=== PATIENT | male | born 1970 | race Caucasian/White ===

== ENCOUNTER 2017-10-21 11:53 | Emergency (ER) | payer BC ==
[2017-10-21 12:20] VITALS: BP 145/91; PULSE 99; RESP 18; TEMP 99.5
[2017-10-21] MEDS ORDERED: DIPH,PERTUS(ACELL)TETVAC-LF 0.5 ML VIAL IM ONE (12:58)
--- NOTE | 2017-10-21 13:01 | ED ---
General Adult HPI - General Chief complaint: Wound/Laceration Stated complaint: LEFT HAND INJURY Time Seen by Provider: 10/21/17 12:41 Source: patient, RN notes reviewed Mode of arrival: ambulatory Limitations: no limitations - History of Present Illness Initial comments: 47-year-old male presents for a cut to the left hand. Patient states that he cut it with a knife. Patient states he does not recall his last tetanus. Patient states this happens just prior to arrival. Patient denies any other injury from the incident. He denies any numbness or tingling to the hand. He denies any other symptoms. He denies any pain or discomfort. He saw the "little bit so he thought that he might need a stitch. Patient states that he has had in the throbbing type pain that is mild.Patient denies any recent fever , chills, shortness of breath, chest pain, back pain, abdominal pain, nausea vomiting, numbness or tingling, dysuria or hematuria, constipation or diarrhea, headaches or visual changes, or any other current symptoms. - Related Data Allergies Allergy/AdvReac Type Severity Reaction Status Date / Time No Known Allergies Allergy Verified 10/21/17 12:20 Review of Systems ROS Statement: Those systems with pertinent positive or pertinent negative responses have been documented in the HPI. ROS Other: All systems not noted in ROS Statement are negative. Past Medical History Past Medical History: Diabetes Mellitus History of Any Multi-Drug Resistant Organisms: None Reported Past Surgical History: No Surgical Hx Reported Past Psychological History: No Psychological Hx Reported Smoking Status: Never smoker Past Alcohol Use History: None Reported Past Drug Use History: None Reported General Exam - General Exam Comments Initial Comments: General: The patient is awake and alert, in no distress, and does not appear acutely ill. Neck: The neck is supple, there is no tenderness. Cardiovascular: There is a regular rate and rhythm. No murmur, rub or gallop is appreciated. Respiratory: Lungs are clear to auscultation, respirations are non-labored, breath sounds are equal. No wheezes, stridor, rales, or rhonchi. Musculoskeletal: Sensation intact with 2+ pulses throughout the left upper x- ray. Full range of motion with 5 out of 5 muscle strength testing throughout the left hand and wrist. Small 1 cm laceration in between the first and second digit. Neurological: CN II-XII intact, There are no obvious motor or sensory deficits. Coordination appears grossly intact. Speech is normal. Skin: Skin is warm and dry and no rashes or lesions are noted. Psychiatric: Normal mood and affect. Limitations: no limitations Course Vital Signs 10/21/17 12:17 Temperature 99.5 F Pulse Rate 99 Respiratory 18 Rate Blood Pressure 145/91 O2 Sat by Pulse 100 Oximetry Procedures - Procedures Initial comment: The skin was anesthetized with 1% lidocaine. The laceration was then cleansed with Betadine and irrigated with normal saline. The wound was inspected, and there was no evidence of injury to deep structures. No foreign body was noted in the wound. A total of 1 skin sutures were placed utilizing 5-0 nylon to a left hand laceration that is 1 cm in length Medical Decision Making - Medical Decision Making 47-year-old male presents for left hand laceration. This time tetanus is updated and x-rays reviewed. At this time patient underwent suture repair. We discussed care follow-up return parameters all questions. Patient states that he understood and he is in agreement this plan. All questions have been answered. He will be discharged. - Radiology Data Radiology results: report reviewed, image reviewed Disposition Clinical Impression: Laceration of left hand Disposition: HOME SELF-CARE Condition: Stable Instructions: Care For Your Stitches (ED) Additional Instructions: Please use medication as discussed. Please follow up with family doctor if symptoms have not improved over the next two days. Please return to the emergency room if your symptoms increase or worsen or for any other concerns. Please return to the emergency room in 8-10 days to have sutures removed. Please leave wound covered for the first 24-48 hours and then leave open to air after that time. Please use clean soap and water to clean the suture area to prevent scabbing over the top of your sutures. Please watch for any signs of infection which may include but not limited to increased pain, swelling, redness , fever or chills. Please return to the emergency room if any signs of infection do occur. Please return to the emergency room for any other concerns or complications. Referrals: Peng Constantino DO [Primary Care Provider] - 1-2 days Time of Disposition: 13:27
--- NOTE | 2017-10-21 13:13 | XR ---
EXAMINATION TYPE: XR hand complete LT DATE OF EXAM: 10/21/2017 CLINICAL HISTORY: Hand pain after injury. TECHNIQUE: Frontal, lateral and oblique images of the left hand are obtained. COMPARISON: None. FINDINGS: There is no acute fracture/dislocation evident in the left hand. The joint spaces in the l eft hand appear within normal limits. The overlying soft tissue appears unremarkable. IMPRESSION: There is no acute fracture or dislocation in the left hand.
== END 2017-10-21 13:30 | disposition home or self-care (01) ==
LOC: EC 11:53
DX: S61.412A Laceration without foreign body of left hand, initial encounter (principal); Z23 Encounter for immunization; W26.0XXA Contact with knife, initial encounter; Y93.89 Activity, other specified
CPT/HCPCS: 12001; 90471; 90715; 99282

== ENCOUNTER 2020-02-09 23:01 | Observation (INO) | payer OTHER ==
[2020-02-09 23:19] LABS: Glucose,Whole Blood 290 mg/dL (75-99)
--- NOTE | 2020-02-09 23:29 | ED ---
Recheck HPI - General Chief Complaint: Recheck/Abnormal Lab/Rx Stated Complaint: DKA Source: patient, EMS Mode of arrival: EMS Limitations: no limitations - History of Present Illness Initial Comments: Alexander is a 49-year-old type I diabetic who controls his diabetes with sliding sc phil insulin. He does not have a insulin pump. He reports he's been diabetic for approximately 9 years. He has not had DKA since his diagnosis. He states that he was driving back home to [place] from [place], he's not certain if he ate something that made him sick but reports that throughout the day today he's been vomiting which prompted him did not take his insulin. Upon return home his roommate noted that he was quite ill and take him to an outside hospital where he was found to be in severe DKA. Patient reports mild epigastric discomfort from vomiting and complains of thirst but has no other complaints. - Related Data Home Medications Medication Instructions Recorded Confirmed Insulin Glargine,Hum.rec.anlog See Protocol SQ AC-TID 02/09/20 02/09/20 [Basaglar Kwikpen U-100] Insulin Glargine,Hum.rec.anlog 15 unit SQ HS 02/09/20 02/09/20 [Lantus Solostar] Allergies Allergy/AdvReac Type Severity Reaction Status Date / Time No Known Allergies Allergy Verified 02/09/20 23:27 Review of Systems ROS Statement: Those systems with pertinent positive or pertinent negative responses have been documented in the HPI. ROS Other: All systems not noted in ROS Statement are negative. Past Medical History Past Medical History: Diabetes Mellitus History of Any Multi-Drug Resistant Organisms: None Reported Past Surgical History: No Surgical Hx Reported Past Psychological History: No Psychological Hx Reported Smoking Status: Never smoker Past Alcohol Use History: None Reported Past Drug Use History: None Reported General Exam - General Exam Comments Initial Comments: Physical Exam GENERAL: Chronically ill-appearing thin gentleman in no acute distress HENT: Normocephalic, Atraumatic. EYES: PERRL, EOMI PULMONARY: Unlabored respirations. No audible rales rhonchi or wheezing was noted. CARDIOVASCULAR: There is a regular rate and rhythm without any murmurs gallops or rubs. ABDOMEN: Soft and nontender with normal bowel sounds. SKIN: Skin is clear with no lesions or rashes and otherwise unremarkable. : Deferred NEUROLOGIC: Patient is alert and oriented x3. Moving all extremities spontaneously MUSCULOSKELETAL: Normal extremities with adequate strength and full range of motion. No lower extremity swelling or edema. No calf tenderness. PSYCHIATRIC: Normal psychiatric evaluation. Limitations: no limitations Course Vital Signs 02/09/20 23:02 Temperature 98.4 F Pulse Rate 114 H Respiratory 18 Rate Blood Pressure 167/117 O2 Sat by Pulse 99 Oximetry Medical Decision Making - Medical Decision Making Patient care was discussed with transferring physician, patient is in acute DKA likely related to failure to take his medications today secondary to gastroenteritis Review of outside labs reveal the patient had Glucose >600, Anion Gap 32, he was started on Insulin and transferred here Repeat labs were obtained upon arrival here - patient remains in DKA with a glucose of 308, anion gap of 23, potassium remains elevated at 5.2-60 continue the insulin at this time we will rebolus Patient will be admitted to the intensive care unit with DKA protocol Patient care was discussed with the lifestyle block farmer Dr. Tran who agrees with plan - Lab Data Result diagrams: 02/09/20 23:17 02/10/20 00:05 Lab Results 02/09/20 02/09/20 02/09/20 Range/Units 23:11 23:17 23:17 WBC 21.7 H (3.8-10.6) k/uL RBC 5.49 (4.30-5.90) m/uL Hgb 17.1 (13.0-17.5) gm/dL Hct 48.1 (39.0-53.0) % MCV 87.7 (80.0-100.0) fL MCH 31.2 (25.0-35.0) pg MCHC 35.6 (31.0-37.0) g/dL RDW 13.2 (11.5-15.5) % Plt Count 268 (150-450) k/uL Neutrophils % 89 % Lymphocytes % 6 % Monocytes % 3 % Eosinophils % 1 % Basophils % 0 % Neutrophils # 19.4 H (1.3-7.7) k/uL Lymphocytes # 1.4 (1.0-4.8) k/uL Monocytes # 0.7 (0-1.0) k/uL Eosinophils # 0.2 (0-0.7) k/uL Basophils # 0.1 (0-0.2) k/uL VBG pH (7.31-7.41) VBG pCO2 (37-51) mmHg VBG HCO3 (24-28) mmol/L Sodium (137-145) mmol/L Potassium (3.5-5.1) mmol/L Chloride (98-107) mmol/L Carbon Dioxide (22-30) mmol/L Anion Gap mmol/L BUN (9-20) mg/dL Creatinine (0.66-1.25) mg/dL Est GFR (CKD-EPI)AfAm (>60 ml/min/1.73 sqM) Est GFR (CKD-EPI)NonAf (>60 ml/min/1.73 sqM) Glucose (74-99) mg/dL POC Glucose (mg/dL) 290 H (75-99) mg/dL POC Glu Handle Bender ID Marielos Randolph Osmolality (280-301) mosm/kg Plasma Lactic Acid Alexis (0.7-2.0) mmol/L Calcium (8.4-10.2) mg/dL Total Bilirubin (0.2-1.3) mg/dL AST (17-59) U/L ALT (4-49) U/L Alkaline Phosphatase (38-126) U/L Total Protein (6.3-8.2) g/dL Albumin (3.5-5.0) g/dL Urine Color Light Yellow Urine Appearance Clear (Clear) Urine pH 5.0 (5.0-8.0) Ur Specific [place] 1.020 (1.001-1.035) Urine Protein Trace H (Negative) Urine Glucose (UA) 4+ H (Negative) Urine Ketones 4+ H (Negative) Urine Blood Trace H (Negative) Urine Nitrite Negative (Negative) Urine Bilirubin Negative (Negative) Urine Urobilinogen <2.0 (<2.0) mg/dL Ur Leukocyte Esterase Negative (Negative) Urine RBC 1 (0-5) /hpf Urine WBC 1 (0-5) /hpf Ur Squamous Epith Cells <1 (0-4) /hpf Urine Mucus Rare H (None) /hpf Acetone, Qual (Negative) 02/09/20 02/10/20 02/10/20 Range/Units 23:38 00:05 00:05 WBC (3.8-10.6) k/uL RBC (4.30-5.90) m/uL Hgb (13.0-17.5) gm/dL Hct (39.0-53.0) % MCV (80.0-100.0) fL MCH (25.0-35.0) pg MCHC (31.0-37.0) g/dL RDW (11.5-15.5) % Plt Count (150-450) k/uL Neutrophils % % Lymphocytes % % Monocytes % % Eosinophils % % Basophils % % Neutrophils # (1.3-7.7) k/uL Lymphocytes # (1.0-4.8) k/uL Monocytes # (0-1.0) k/uL Eosinophils # (0-0.7) k/uL Basophils # (0-0.2) k/uL VBG pH 7.21 L (7.31-7.41) VBG pCO2 21 L (37-51) mmHg VBG HCO3 8 L* (24-28) mmol/L Sodium 137 (137-145) mmol/L Potassium 5.2 H (3.5-5.1) mmol/L Chloride 108 H (98-107) mmol/L Carbon Dioxide 6 L* (22-30) mmol/L Anion Gap 23 mmol/L BUN 16 (9-20) mg/dL Creatinine 0.80 (0.66-1.25) mg/dL Est GFR (CKD-EPI)AfAm >90 (>60 ml/min/1.73 sqM) Est GFR (CKD-EPI)NonAf >90 (>60 ml/min/1.73 sqM) Glucose 307 H (74-99) mg/dL POC Glucose (mg/dL) (75-99) mg/dL POC Glu Handle Bender ID Osmolality 308 H (280-301) mosm/kg Plasma Lactic Acid Alexis 1.6 (0.7-2.0) mmol/L Calcium 9.5 (8.4-10.2) mg/dL Total Bilirubin 1.1 (0.2-1.3) mg/dL AST 20 (17-59) U/L ALT 17 (4-49) U/L Alkaline Phosphatase 126 (38-126) U/L Total Protein 8.0 (6.3-8.2) g/dL Albumin 5.2 H (3.5-5.0) g/dL Urine Color Urine Appearance (Clear) Urine pH (5.0-8.0) Ur Specific [place] (1.001-1.035) Urine Protein (Negative) Urine Glucose (UA) (Negative) Urine Ketones (Negative) Urine Blood (Negative) Urine Nitrite (Negative) Urine Bilirubin (Negative) Urine Urobilinogen (<2.0) mg/dL Ur Leukocyte Esterase (Negative) Urine RBC (0-5) /hpf Urine WBC (0-5) /hpf Ur Squamous Epith Cells (0-4) /hpf Urine Mucus (None) /hpf Acetone, Qual Positive (Negative) 02/10/20 Range/Units 01:06 WBC (3.8-10.6) k/uL RBC (4.30-5.90) m/uL Hgb (13.0-17.5) gm/dL Hct (39.0-53.0) % MCV (80.0-100.0) fL MCH (25.0-35.0) pg MCHC (31.0-37.0) g/dL RDW (11.5-15.5) % Plt Count (150-450) k/uL Neutrophils % % Lymphocytes % % Monocytes % % Eosinophils % % Basophils % % Neutrophils # (1.3-7.7) k/uL Lymphocytes # (1.0-4.8) k/uL Monocytes # (0-1.0) k/uL Eosinophils # (0-0.7) k/uL Basophils # (0-0.2) k/uL VBG pH (7.31-7.41) VBG pCO2 (37-51) mmHg VBG HCO3 (24-28) mmol/L Sodium (137-145) mmol/L Potassium (3.5-5.1) mmol/L Chloride (98-107) mmol/L Carbon Dioxide (22-30) mmol/L Anion Gap mmol/L BUN (9-20) mg/dL Creatinine (0.66-1.25) mg/dL Est GFR (CKD-EPI)AfAm (>60 ml/min/1.73 sqM) Est GFR (CKD-EPI)NonAf (>60 ml/min/1.73 sqM) Glucose (74-99) mg/dL POC Glucose (mg/dL) 306 H (75-99) mg/dL POC Glu Handle Bender ID [place], [place] Osmolality (280-301) mosm/kg Plasma Lactic Acid Alexis (0.7-2.0) mmol/L Calcium (8.4-10.2) mg/dL Total Bilirubin (0.2-1.3) mg/dL AST (17-59) U/L ALT (4-49) U/L Alkaline Phosphatase (38-126) U/L Total Protein (6.3-8.2) g/dL Albumin (3.5-5.0) g/dL Urine Color Urine Appearance (Clear) Urine pH (5.0-8.0) Ur Specific [place] (1.001-1.035) Urine Protein (Negative) Urine Glucose (UA) (Negative) Urine Ketones (Negative) Urine Blood (Negative) Urine Nitrite (Negative) Urine Bilirubin (Negative) Urine Urobilinogen (<2.0) mg/dL Ur Leukocyte Esterase (Negative) Urine RBC (0-5) /hpf Urine WBC (0-5) /hpf Ur Squamous Epith Cells (0-4) /hpf Urine Mucus (None) /hpf Acetone, Qual (Negative) Critical Care Time Critical Care Time: Yes Total Critical Care Time: 30 Critical Care Time: Critical care time was exclusive of separately billable procedures and treating other patients and teaching time. Critical care was necessary to treat or prevent imminent or life-threatening deterioration. Given the critical condition in which the patient arrived, the patient was immediately assessed by myself and the nurse, and cardiac monitoring initiated due to the potential for rapid decompensation of the patient's clinical c ondition. During the course of the patients stay, I spent a considerable amount of time at the bedside performing serial re-evaluations of the patient's hemodynamic and clinical status because of the recognized potential threat to life or limb in this condition. I then had a chance to review not only all of the available current laboratory and radiographic studies obtained today, but I also reviewed old records available to me at the time. Additionally, any ancillary information available including rim fire priming operator records were reviewed. Sequential vital signs were obtained. Disposition Clinical Impression: DKA, type 1 Disposition: ADMITTED IP TO THIS [facility] Condition: Serious Is patient prescribed a controlled substance at d/c from ED?: No Referrals: Rishi Novak MD [Primary Care Provider] - 1-2 days
[2020-02-09] MEDS ORDERED: SODIUM CHLORIDE 0.9% 1,000 ML IV SCH (23:30)
[2020-02-09 23:38] LABS: Appearance,Urine Clear (Clear); Bilirubin,Urine Negative (Negative); Blood,Urine Trace (Negative); Color,Urine Light Yellow; Glucose,Urine (UA) 4+ (Negative); Leukocyte Esterase,Urine Negative (Negative); Mucus,Urine Rare /hpf; Nitrite,Urine Negative (Negative); Protein,Urine Trace (Negative); RBC,Urine 1 /hpf (0-5); Squamous Epithelial Cell,Urine <1 /hpf (0-4); Urobilinogen,Urine <2.0 mg/dL (<2.0); WBC,Urine 1 /hpf (0-5)
[2020-02-09 23:43] LABS: Basophils # (A) 0.1 k/uL (0-0.2); Basophils % (A) 0 %; Eosinophils # (A) 0.2 k/uL (0-0.7); Eosinophils % (A) 1 %; HCT 48.1 % (39.0-53.0); HGB 17.1 gm/dL (13.0-17.5); Lymphocytes # (A) 1.4 k/uL (1.0-4.8); Lymphocytes % (A) 6 %; MCH 31.2 pg (25.0-35.0); MCHC 35.6 g/dL (31.0-37.0); MCV 87.7 fL (80.0-100.0); Mean Platelet Volume 11.5; Monocytes # (A) 0.7 k/uL (0-1.0); Monocytes % (A) 3 %; Neutrophils # (A) 19.4 k/uL (1.3-7.7); Neutrophils % (A) 89 %; RBC 5.49 m/uL (4.30-5.90); RDW 13.2 % (11.5-15.5); WBC 21.7 k/uL (3.8-10.6)
[2020-02-09 23:57] LABS: Ketones,Urine 4+ (Negative)
[2020-02-10 00:18] LABS: VBG PH 7.21 (7.31-7.41)
[2020-02-10 00:30] LABS: ALT 17 U/L (4-49); AST 20 U/L (17-59); African American GFR (CKD) >90 (>60 ml/min/1.73 sqM); Albumin 5.2 g/dL (3.5-5.0); Alkaline Phosphatase 126 U/L (38-126); Anion Gap 23 mmol/L; Blood Urea Nitrogen 16 mg/dL (9-20); Calcium 9.5 mg/dL (8.4-10.2); Chloride 108 mmol/L (98-107); Glucose 307 mg/dL (74-99); Non-African American GFR(CKD) >90 (>60 ml/min/1.73 sqM); Potassium 5.2 mmol/L (3.5-5.1); Sodium 137 mmol/L (137-145); Total Bilirubin 1.1 mg/dL (0.2-1.3)
[2020-02-10 00:38] LABS: Carbon Dioxide 6 mmol/L (22-30)
[2020-02-10 00:38] LABS: Platelet Count 268 k/uL (150-450)
[2020-02-10] MEDS ORDERED: INSULIN REGULAR BOLUS (FROM DRIP BAG) IV PRN (00:57)
[2020-02-10] MEDS ORDERED: INSULIN REGULAR 100 UNIT in SODIUM CHLORIDE 0.9% 100 ML IV SCH ×2 (01:00→01:45)
[2020-02-10 01:08] LABS: Glucose,Whole Blood 306 mg/dL (75-99)
[2020-02-10] MEDS ORDERED: DEXTROSE 5%-0.45% NACL 1,000 ML IV ONE (01:19)
[2020-02-10] MEDS ORDERED: Potassium Replacement Protocol 1 EACH MISC MISCELLANE PRN ×2 (01:34→17:54)
[2020-02-10] MEDS ORDERED: Magnesium Replacement Protocol 1 EACH MISC MISCELLANE PRN (01:34)
[2020-02-10] MEDS ORDERED: NALOXONE 0.4 MG/ML 1 ML VIAL IV PRN (01:37)
[2020-02-10] MEDS ORDERED: SODIUM CHLORIDE 0.9% 1,000 ML IV SCH (01:45)
[2020-02-10 02:15] LABS: Glucose,Whole Blood 379 mg/dL (75-99)
[2020-02-10 03:09] LABS: Glucose,Whole Blood 209 mg/dL (75-99)
[2020-02-10] MEDS ORDERED: ACETAMINOPHEN TAB 325 MG TAB PO PRN (03:12)
[2020-02-10] MEDS: D5-0.45% NACL WITH KCL 20MEQ/L 1,000 ML IV SCH ×3 (03:29→16:39)
[2020-02-10 04:05] LABS: Glucose,Whole Blood 173 mg/dL (75-99)
[2020-02-10 05:03] LABS: African American GFR (CKD) >90 (>60 ml/min/1.73 sqM); Anion Gap 19 mmol/L; Blood Urea Nitrogen 17 mg/dL (9-20); Carbon Dioxide 10 mmol/L (22-30); Chloride 109 mmol/L (98-107); Glucose 146 mg/dL (74-99); Non-African American GFR(CKD) >90 (>60 ml/min/1.73 sqM); Sodium 138 mmol/L (137-145)
[2020-02-10 05:07] LABS: Glucose,Whole Blood 146 mg/dL (75-99)
[2020-02-10 06:03] LABS: Glucose,Whole Blood 154 mg/dL (75-99)
[2020-02-10 06:28] LABS: HCT 46.4 % (39.0-53.0); MCH 30.2 pg (25.0-35.0); MCHC 34.5 g/dL (31.0-37.0); MCV 87.6 fL (80.0-100.0); Platelet Count 255 k/uL (150-450); RBC 5.29 m/uL (4.30-5.90); RDW 13.3 % (11.5-15.5); WBC 19.5 k/uL (3.8-10.6)
[2020-02-10 07:00] LABS: Glucose,Whole Blood 145 mg/dL (75-99)
[2020-02-10 08:22] LABS: Glucose,Whole Blood 123 mg/dL (75-99)
[2020-02-10 09:09] LABS: African American GFR (CKD) >90 (>60 ml/min/1.73 sqM); Anion Gap 11 mmol/L; Blood Urea Nitrogen 17 mg/dL (9-20); Carbon Dioxide 15 mmol/L (22-30); Chloride 108 mmol/L (98-107); Cholesterol 227 mg/dL (<200); Glucose 127 mg/dL (74-99); HDL Cholesterol 60 mg/dL (40-60); LDL Cholesterol,Calculated 145 mg/dL (0-99); Non-African American GFR(CKD) >90 (>60 ml/min/1.73 sqM); Phosphorus 2.3 mg/dL (2.5-4.5); Potassium 4.6 mmol/L (3.5-5.1); Sodium 134 mmol/L (137-145); Triglycerides 109 mg/dL (<150)
[2020-02-10 09:53] LABS: Glucose,Whole Blood 126 mg/dL (75-99)
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
[2020-02-10 12:44] LABS: Glucose,Whole Blood 233 mg/dL (75-99)
[2020-02-10 13:26] LABS: African American GFR (CKD) >90 (>60 ml/min/1.73 sqM); Anion Gap 11 mmol/L; Blood Urea Nitrogen 15 mg/dL (9-20); Carbon Dioxide 17 mmol/L (22-30); Chloride 104 mmol/L (98-107); Glucose 205 mg/dL (74-99); Non-African American GFR(CKD) >90 (>60 ml/min/1.73 sqM); Phosphorus 2.3 mg/dL (2.5-4.5); Potassium 3.8 mmol/L (3.5-5.1); Sodium 132 mmol/L (137-145)
[2020-02-10 14:06] LABS: Glucose,Whole Blood 267 mg/dL (75-99)
[2020-02-10 14:53] LABS: Glucose,Whole Blood 246 mg/dL (75-99)
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
[2020-02-10 16:12] LABS: Glucose,Whole Blood 213 mg/dL (75-99)
[2020-02-10 17:49] LABS: African American GFR (CKD) >90 (>60 ml/min/1.73 sqM); Anion Gap 7 mmol/L; Blood Urea Nitrogen 13 mg/dL (9-20); Calcium 8.9 mg/dL (8.4-10.2); Carbon Dioxide 20 mmol/L (22-30); Chloride 106 mmol/L (98-107); Glucose 169 mg/dL (74-99); Non-African American GFR(CKD) >90 (>60 ml/min/1.73 sqM); Phosphorus 1.8 mg/dL (2.5-4.5); Potassium 3.6 mmol/L (3.5-5.1); Sodium 133 mmol/L (137-145)
[2020-02-10 18:00] LABS: Glucose,Whole Blood 181 mg/dL (75-99)
[2020-02-10 18:28] LABS: Hemoglobin A1C 11.3 % (4.0-6.0)
[2020-02-10] MEDS ORDERED: POTASSIUM CHLORIDE ER 20 MEQ TAB.ER PO SCH (19:00)
[2020-02-10] MEDS ORDERED: D5-0.45% NACL WITH KCL 20MEQ/L 1,000 ML IV SCH (19:00)
[2020-02-10 20:04] LABS: Glucose,Whole Blood 270 mg/dL (75-99)
[2020-02-10] MEDS ORDERED: ATORVASTATIN 10 MG TAB PO SCH (21:00)
[2020-02-10] MEDS ORDERED: INSULIN DETEMIR (LEVEMIR) 100 UNIT/ML SYR SQ SCH (21:00)
[2020-02-10 21:16] LABS: Glucose,Whole Blood 260 mg/dL (75-99)
[2020-02-10] MEDS: HEPARIN SODIUM,PORCINE 5,000 UNIT/ML 1 ML VIAL SQ SCH (21:18)
[2020-02-10] MEDS: INSULIN ASPART (NovoLOG) 100 UNIT/ML VIAL SQ SCH (21:19)
[2020-02-11 01:40] LABS: Glucose,Whole Blood 99 mg/dL (75-99)
[2020-02-11 06:42] LABS: HCT 49.5 % (39.0-53.0); HGB 17.3 gm/dL (13.0-17.5); MCV 88.5 fL (80.0-100.0); Mean Platelet Volume 9.7; Platelet Count 201 k/uL (150-450); RBC 5.59 m/uL (4.30-5.90); RDW 13.2 % (11.5-15.5); WBC 10.5 k/uL (3.8-10.6)
[2020-02-11 06:49] LABS: ALT 16 U/L (4-49); AST 30 U/L (17-59); African American GFR (CKD) >90 (>60 ml/min/1.73 sqM); Albumin 4.4 g/dL (3.5-5.0); Alkaline Phosphatase 86 U/L (38-126); Anion Gap 9 mmol/L; Blood Urea Nitrogen 12 mg/dL (9-20); Calcium 9.2 mg/dL (8.4-10.2); Carbon Dioxide 20 mmol/L (22-30); Chloride 109 mmol/L (98-107); Non-African American GFR(CKD) >90 (>60 ml/min/1.73 sqM); Potassium 3.8 mmol/L (3.5-5.1); Sodium 138 mmol/L (137-145); Total Bilirubin 0.8 mg/dL (0.2-1.3)
[2020-02-11 07:02] LABS: Glucose,Whole Blood 52 mg/dL (75-99)
[2020-02-11 07:02] LABS: Glucose,Whole Blood 51 mg/dL (75-99)
[2020-02-11 07:03] LABS: Glucose 47 mg/dL (74-99)
[2020-02-11 07:13] VITALS: RESP 21
[2020-02-11 07:24] LABS: Glucose,Whole Blood 128 mg/dL (75-99)
[2020-02-11] MEDS ORDERED: PANTOPRAZOLE 40 MG TABLET PO SCH (07:30)
[2020-02-11] MEDS: INSULIN ASPART (NovoLOG) 100 UNIT/ML VIAL SQ SCH ×2 (08:53→11:58)
[2020-02-11] MEDS: HEPARIN SODIUM,PORCINE 5,000 UNIT/ML 1 ML VIAL SQ SCH (08:58)
[2020-02-11 09:59] VITALS: BMI 17.6
[2020-02-11 10:09] VITALS: BP 152/84; PULSE 98; TEMP 97.7
[2020-02-11 11:51] LABS: Glucose,Whole Blood 295 mg/dL (75-99)
--- NOTE | 2020-02-11 13:01 | P.PN ---
Subjective Progress Note Date: 02/11/20 This patient is 49, diabetic type I, currently on Lantus insulin was Hospital as for DKA. The patient was visiting his son in [place] and on his way driving back to [place] he became quite ill. Started having polyuria and polydipsia which was attributed to an elevated blood sugar. At the same time the patient had nausea and some emesis. He had been taken his insulin and issues with compliance. No fever. No chills. He initially presented to [facility] his blood sugar was above 600. He had anion gap metabolic acidosis. White cell count was 21.7. Venous blood gas showed a pH of 7.21 with a pCO2 of 21 and a serum bicarb of 15. At that point, the patient got transferred to the intensive care unit at our hospital for treatment of DKA. The patient is already received a total of 2 L of IV fluids and currently is on IV fluids which was switched to D5 half-normal saline at the rate of 150 mL an hour. The patient is also on insulin drip at 0.75 units per kilogram per hour. The patient feeling much better today. His blood sugars improved and below 200 at this point in time. Nevertheless, he continues to have some mild component of lichen metabolic acidosis this morning. He is much more awake and alert and is communicating. Denies having any nausea vomiting or abdominal pain. No cough or sputum production. No focal neurological deficits. No history of tics urgency. No other complaints otherwise for now. The serum bicarb from this morning is up to 15. His anion gap is down to 11. On 02/11/2020, the patient has no specific complaints. The patient's DKA was treated and the patient anion gap closed in the morning LABS show a anion gap of 9 with a serum bicarb of 20. He did have long-acting Lantus insulin given to him yesterday. Earlier this morning he had an asymptomatic lower blood sugar of 47. He was given juice and subsequently at breakfast and the blood sugar gradually improved and is up to 128. He is also on a sliding scale coverage. He is HbA1c came back elevated at 11. As such, the patient has had for blood sugar control now patient basis. He has no specific complaints. No significant cough sputum production chest vessel wheezing. No fever or chills and altered mentation. Objective - Vital Signs Vital signs: Vital Signs Temp 97.7 F 02/11/20 08:00 Pulse 98 02/11/20 09:00 Resp 21 02/11/20 09:00 BP 152/84 02/11/20 09:00 Pulse Ox 97 02/11/20 09:00 Intake & Output 02/10/20 02/11/20 02/11/20 18:59 06:59 18:59 Intake Total 1812.093 250 Output Total 825 1225 0 Balance 987.093 -975 0 Weight 49.6 kg 49.6 kg Intake: IV 1800 100 D5-0.45% NaCl with KCl 1800 100 20Meq/l 1,000 ml @ 150 mls/hr IV .[id number] ANNABELLE Rx# :[id number] Intake, IV Titration 12.093 Amount Insulin Regular 100 unit 12.093 In Sodium Chloride 0.9% 100 ml @ 0.1 UNITS/KG/HR 6.185 mls/hr IV .[id number] ANNABELLE Rx#:[id number] Oral 150 Output: Urine 825 1225 0 Other: Voiding Method Urinal Urinal Urinal # Voids 0 # Bowel Movements 1 - Exam The patient appeared well nourished and normally developed. Vital signs as documented. Head exam is unremarkable. No scleral icterus or corneal arcus noted. Neck is without jugular venous distension, thyromegaly, or carotid bruits. Carotid upstrokes are brisk bilaterally. Lungs are clear to auscultation and percussion. Cardiac exam reveals the PMI to be normally sized and situated. Rhythm is regular. First and second heart sounds normal. No murmurs, rubs or gallops. Abdominal exam reveals normal bowel sounds, no masses, no organomegaly and no aortic enlargement. Extremities are nonedematous and both femoral and pedal pulses are normal. - Labs CBC & Chem 7: 02/11/20 05:58 02/11/20 05:58 Labs: Abnormal Lab Results - Last 24 Hours (Table) 02/10/20 02/10/20 02/10/20 Range/Units 06:00 12:48 14:04 Sodium 132 L (137-145) mmol/L Chloride (98-107) mmol/L Carbon Dioxide 17 L (22-30) mmol/L Creatinine (0.66-1.25) mg/dL Glucose 205 H (74-99) mg/dL POC Glucose (mg/dL) 267 H (75-99) mg/dL Hemoglobin A1c 11.3 H (4.0-6.0) % Phosphorus 2.3 L (2.5-4.5) mg/dL 02/10/20 02/10/20 02/10/20 Range/Units 14:52 16:10 17:17 Sodium 133 L (137-145) mmol/L Chloride (98-107) mmol/L Carbon Dioxide 20 L (22-30) mmol/L Creatinine (0.66-1.25) mg/dL Glucose 169 H (74-99) mg/dL POC Glucose (mg/dL) 246 H 213 H (75-99) mg/dL Hemoglobin A1c (4.0-6.0) % Phosphorus 1.8 L (2.5-4.5) mg/dL 02/10/20 02/10/20 02/10/20 Range/Units 17:59 20:03 21:14 Sodium (137-145) mmol/L Chloride (98-107) mmol/L Carbon Dioxide (22-30) mmol/L Creatinine (0.66-1.25) mg/dL Glucose (74-99) mg/dL POC Glucose (mg/dL) 181 H 270 H 260 H (75-99) mg/dL Hemoglobin A1c (4.0-6.0) % Phosphorus (2.5-4.5) mg/dL 02/11/20 02/11/20 02/11/20 Range/Units 05:58 06:58 07:00 Sodium (137-145) mmol/L Chloride 109 H (98-107) mmol/L Carbon Dioxide 20 L (22-30) mmol/L Creatinine 0.61 L (0.66-1.25) mg/dL Glucose 47 L* (74-99) mg/dL POC Glucose (mg/dL) 51 L 52 L (75-99) mg/dL Hemoglobin A1c (4.0-6.0) % Phosphorus (2.5-4.5) mg/dL 02/11/20 02/11/20 Range/Units 07:22 11:50 Sodium (137-145) mmol/L Chloride (98-107) mmol/L Carbon Dioxide (22-30) mmol/L Creatinine (0.66-1.25) mg/dL Glucose (74-99) mg/dL POC Glucose (mg/dL) 128 H 295 H (75-99) mg/dL Hemoglobin A1c (4.0-6.0) % Phosphorus (2.5-4.5) mg/dL Microbiology - Last 24 Hours (Table) 02/10/20 00:07 Blood Culture - Preliminary Blood No Growth after 24 hours Assessment and Plan Plan: 1 DKA currently being treated by the DKA protocol and recovered and the patient has been transitioned to Levemir insulin. The patient had a single episode of hypoglycemia this morning blood sugar of 47, asymptomatic and the blood sugar subsequently improved. 2 type 1 diabetes mellitus, maintained on Lantus insulin on outpatient basis. The patient has poorly controlled blood sugar with an elevated HbA1c on outpati ent basis 3 leukocytosis, reactive secondary to DKA, improved 4 anion gap metabolic acidosis secondary to above, recovered 5 hyperlipidemia Plan Continue Levemir insulin 15 units a day along with Effexor coverage Monitor blood sugars Transfer this patient out of the intensive care units. Diabetic education. Outpatient follow-up. [facility]micort critical care services we'll sign off.
--- NOTE | 2020-02-11 15:23 | P.DS ---
Providers Date of admission: 02/10/20 01:37 Expected date of discharge: 02/11/20 Attending physician: Dallin Titus Consults: 02/10/20 01:37 Consult Physician Stat Consulting Provider: Richard Tran Consult Reason/Comments: ICU Do you want consulting provider notified?: Already Contacted Primary care physician: Rishi Novak [facility] Course: This is a 49-year-old male patient of Dr. Novak and also follows with Dr. Yumi Holt recently. Patient has a past medical history of diabetes diagnosed at age 40, recently identified as type I. He denies any other medical problems and he only takes insulin at home. Patient states he went down to visit his son in [place] and he drove back from [place] overnight did not take his nighttime long-acting insulin and when he finally arrived in the [place] area, he tried to drink some water ended up vomiting. He was staying at a friend's in a camper to help with cleaning someone's home and they insisted that he go to the hospital for evaluation. He initially presented to [facility] with a blood sugar of 640. He was subsequently transferred to [facility] for evaluation. He denies having any fever or chills. No chest pain, no shortness of breath, no cough, no sputum production. Nausea and vomiting have resolved. No diarrhea. Initial blood work at [facility] reveals WBC of 21.7, hemoglobin 17.1. Blood sugar 307. Venous pH 7.21, pCO2 21 and bicarb 8. Sodium 137, potassium 5.2, chloride 108, CO2 6, BUN 16 creatinine 0.8. Serum osmolality 308. Subsequently, this morning, blood sugars running 120s with gap of 11, BUN 17, creatinine 0.62. Sodium 134, potassium 4.6, chloride 108, CO2 15. Lipid panel revealed triglycerides 109, cholesterol 227, LDL 145, HDL 60. Urinalysis was clear with nitrate and leukoesterase negative. Ketones 4+, blood trace. Acetone positive. Patient was initially admitted into the intensive care unit and started on the DKA protocol, consult with parimutuel ticket checker. 02/10: pulmonology technician, patient's blood sugar was low at 47. He is gradually recovered. He denies any new complaints today. Other lab work reveals normal CBC, chloride 109, CO2 20, creatinine 0.61, potassium 3.8. Liver function tests are normal. Patient states he does have insulin at home and feels he can manage his sugars. Patient has been instructed to follow-up with Dr. Holt on Saturday. Patient will be discharged home today in stable condition. Assessment and Plan 1. DKA. 2. Diabetes mellitus type 1, uncontrolled with hyperglycemia. 3. Hyperlipidemia. 4. Leukocytosis secondary to DKA. 5. Metabolic acidosis secondary to DKA. 6. COVID-19 infection not present. Discharge plan: Return home. Impression and plan of care have been directed as dictated by the signing physician. Aspen Jovel nurse practitioner acting as scribe for signing physician. Patient Condition at Discharge: Good Plan - Discharge Summary New Discharge Prescriptions: New Atorvastatin [Lipitor] 10 mg PO HS #30 tab Lisinopril [Zestril] 2.5 mg PO DAILY #30 tab Continue Insulin Glargine,Hum.rec.anlog [Basaglar Kwikpen U-100] 15 unit SQ HS Insulin Lispro [Admelog] See Protocol SQ AC-TID Discharge Medication List Insulin Glargine,Hum.rec.anlog [Basaglar Kwikpen U-100] 15 unit SQ HS 02/09/20 [History] Insulin Lispro [Admelog] See Protocol SQ AC-TID 02/10/20 [History] Atorvastatin [Lipitor] 10 mg PO HS #30 tab 02/11/20 [Rx] Lisinopril [Zestril] 2.5 mg PO DAILY #30 tab 02/11/20 [Rx] Follow up Appointment(s)/Referral(s): Ozzy Holt MD [REFERRING] - 02/18/20 11:30 am Rishi Novak MD [Primary Care Provider] - 02/17/20 8:30 am Patient Instructions/Handouts: Diabetic Ketoacidosis (DC) Discharge Disposition: HOME SELF-CARE
== END 2020-02-11 12:31 | disposition home or self-care (01) ==
LOC: EC 23:01 → 2SICU 02-10 01:37 → INTOOBSV 02-10 01:37 → UNDODISIN 02-11 12:31
PROVIDERS: ADMIT Internal Medicine Geriatric Medicine; ATTEND Internal Medicine Geriatric Medicine
DX: E10.10 Type 1 diabetes mellitus with ketoacidosis without coma (principal); D72.829 Elevated white blood cell count, unspecified; T38.3X6A Underdosing of insulin and oral hypoglycemic [antidiabetic] drugs, initial encounter; E78.5 Hyperlipidemia, unspecified; Z20.828 Contact with and (suspected) exposure to other viral communicable diseases; Z79.4 Long term (current) use of insulin; Z98.890 Other specified postprocedural states; Z91.128 Patient's intentional underdosing of medication regimen for other reason; Z87.19 Personal history of other diseases of the digestive system; Z80.8 Family history of malignant neoplasm of other organs or systems; Z80.0 Family history of malignant neoplasm of digestive organs; Z82.49 Family history of ischemic heart disease and other diseases of the circulatory system; Z83.3 Family history of diabetes mellitus
CPT/HCPCS: 96361; 96365; 96366 ×2; 96372 ×2; 99291; 36415 ×2; 93005; 83930; 80051; 80061; 80053 ×2; 82565; 82803; 82009; 83605; 84100; 84132; 82947; 84520; 85025; 85027 ×2; 81001; 87040; 83036; G0378 ×2; U0003; J1644 ×2; 80048

== ENCOUNTER → 2021-03-14 | Outpatient (CLI) | payer OTHER ==
[2021-03-14 21:14] LABS: African American GFR (CKD) 114.2 (60.0-200.0); Anion Gap 10.7 mmol/L (4.00-12.00); BUN/Creat Ratio 13.33 Ratio (12.00-20.00); Calcium 9.2 mg/dL (8.7-10.3); Carbon Dioxide 26.3 mmol/L (21.6-31.8); Non-African American GFR(CKD) 98.5 (60.0-200.0); Potassium 4.1 mmol/L (3.5-5.5)
== END | disposition home or self-care (01) ==
LOC: LABWHC1 12:35
PROVIDERS: ATTEND Nurse Practitioner
DX: E55.9 Vitamin D deficiency, unspecified (principal); E11.9 Type 2 diabetes mellitus without complications; R25.2 Cramp and spasm
CPT/HCPCS: 36415; 80048; 82306; 82607; 83605

== ENCOUNTER → 2022-01-05 | Outpatient (CLI) | payer OTHER ==
--- NOTE | 2022-01-05 18:22 | XR ---
EXAMINATION TYPE: XR hand complete LT DATE OF EXAM: 01/05/2022 COMPARISON: NONE HISTORY: Fall. Pain TECHNIQUE: 3 views FINDINGS: Metacarpals are intact. I see no fracture nor dislocation. Joint spaces are normal. There a re no pathologic calcifications. IMPRESSION: Negative left hand exam.
--- NOTE | 2022-01-05 18:23 | XR ---
EXAMINATION TYPE: XR wrist complete LT DATE OF EXAM: 01/05/2022 COMPARISON: NONE HISTORY: Pain TECHNIQUE: 4 views FINDINGS: There is evidence of nondisplaced fracture through the distal scaphoid bone. No dislocation . Distal radius and ulna appear intact. IMPRESSION: Nondisplaced scaphoid fracture.
--- NOTE | 2022-01-05 18:25 | XR ---
EXAMINATION TYPE: XR forearm LT DATE OF EXAM: 01/05/2022 COMPARISON: NONE HISTORY: Fall. Pain TECHNIQUE: 2 views FINDINGS: Radius and ulna appear intact. I see no fracture nor dislocation. Elbow joint and wrist venita nt appear intact. IMPRESSION: Negative left forearm exam.
== END | disposition home or self-care (01) ==
LOC: RADXRMAIN 17:14
PROVIDERS: ATTEND Emergency Medicine
DX: S62.015A Nondisplaced fracture of distal pole of navicular [scaphoid] bone of left wrist, initial encounter for closed fracture (principal); W19.XXXA Unspecified fall, initial encounter

== ENCOUNTER → 2022-04-11 | Outpatient (CLI) | payer BC, OTHER ==
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
== END | disposition home or self-care (01) ==
LOC: RADCTMAIN 08:19
PROVIDERS: ATTEND Orthopaedic Surgery Hand Surgery
DX: S62.002K Unspecified fracture of navicular [scaphoid] bone of left wrist, subsequent encounter for fracture with nonunion (principal)

== ENCOUNTER 2022-05-20 23:25 | Emergency (ER) | payer BC, OTHER ==
[2022-05-20 23:37] VITALS: RESP 16; TEMP 98.5
[2022-05-20] MEDS ORDERED: SODIUM CHLORIDE 0.9% 1,000 ML IV STA (23:51)
[2022-05-20] MEDS ORDERED: HYDROmorphone 0.5 MG/0.5 ML SYRINGE IVP STA (23:51)
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
[2022-05-21 00:13] LABS: Basophils # (A) 0.1 k/uL (0-0.2); Basophils % (A) 1 %; Eosinophils # (A) 0.1 k/uL (0-0.7); Eosinophils % (A) 2 %; HCT 39.7 % (39.0-53.0); HGB 14.2 gm/dL (13.0-17.5); Lymphocytes # (A) 1.6 k/uL (1.0-4.8); Lymphocytes % (A) 27 %; MCH 30.7 pg (25.0-35.0); MCHC 35.7 g/dL (31.0-37.0); MCV 85.9 fL (80.0-100.0); Mean Platelet Volume 9.4; Monocytes # (A) 0.3 k/uL (0-1.0); Monocytes % (A) 6 %; Neutrophils # (A) 3.7 k/uL (1.3-7.7); Neutrophils % (A) 62 %; Platelet Count 251 k/uL (150-450); RBC 4.62 m/uL (4.30-5.90); RDW 13.7 % (11.5-15.5); WBC 5.9 k/uL (3.8-10.6)
[2022-05-21 00:29] LABS: ALT 30 U/L (4-49); AST 26 U/L (17-59); African American GFR (CKD) >90 (>60 ml/min/1.73 sqM); Albumin 4.5 g/dL (3.5-5.0); Alcohol <10 mg/dL; Alkaline Phosphatase 61 U/L (38-126); Anion Gap 12 mmol/L; Blood Urea Nitrogen 13 mg/dL (9-20); Calcium 9.3 mg/dL (8.4-10.2); Carbon Dioxide 24 mmol/L (22-30); Chloride 101 mmol/L (98-107); Glucose 119 mg/dL (74-99); Non-African American GFR(CKD) >90 (>60 ml/min/1.73 sqM); Potassium 3.3 mmol/L (3.5-5.1); Sodium 137 mmol/L (137-145); Total Bilirubin 0.4 mg/dL (0.2-1.3); Total Protein 6.6 g/dL (6.3-8.2)
[2022-05-21 00:32] LABS: INR 1.1 (<1.2); Prothrombin Time 11.7 sec (9.0-12.0)
[2022-05-21] MEDS ORDERED: POTASSIUM BICARBONATE/CIT AC 20 MEQ TABLET.EFF PO ONE (01:18)
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
--- NOTE | 2022-05-21 01:31 | XR ---
EXAMINATION TYPE: XR wrist complete LT DATE OF EXAM: 05/21/2022 COMPARISON: NONE HISTORY: Pain TECHNIQUE: 4 views FINDINGS: There is no evidence of fracture nor dislocation. Joint spaces are normal. Carpal bones are intact. IMPRESSION: Negative left wrist exam.
[2022-05-21 01:52] VITALS: PULSE 68
[2022-05-21 01:54] VITALS: BP 126/85
[2022-05-21 02:51] LABS: Amphetamine Screen,Urine Not Detected (NotDetected); Barbiturate Screen,Urine Not Detected (NotDetected); Benzodiazepines Screen,Urine Not Detected (NotDetected); Cocaine Screen,Urine Not Detected (NotDetected); Methadone Screen, Urine Not Detected (NotDetected); Opiate Screen,Urine Not Detected (NotDetected); Oxycodone Screen, Urine Not Detected (NotDetected); Phencyclidine Screen,Urine Not Detected (NotDetected); Tricyclic Antidepressant,Urine Not Detected (NotDetected); Urn Cannabinoid Scrn Not Detected (NotDetected)
== END 2022-05-21 02:15 | disposition home or self-care (01) ==
LOC: EC 23:25
DX: S60.212A Contusion of left wrist, initial encounter (principal); E11.9 Type 2 diabetes mellitus without complications; Z79.4 Long term (current) use of insulin; Z88.8 Allergy status to other drugs, medicaments and biological substances; V89.2XXA Person injured in unspecified motor-vehicle accident, traffic, initial encounter
CPT/HCPCS: 36415; 86900; 86901; 80053; 84484; 85025; 85610; 85730; 86850; 80306; 80320; 73110; 72125; 70450; 71260; 74177; 99284; 96374; 96361; J1170; Q9967

== ENCOUNTER → 2022-06-19 | Outpatient (CLI) | payer OTHER ==
[2022-06-19 18:27] LABS: Basophils # (A) 0.05 X 10*3/uL (0.00-0.10); Basophils % (A) 0.8 %; Eosinophils # (A) 0.09 X 10*3/uL (0.04-0.35); Eosinophils % (A) 1.4 %; HCT 42.6 % (39.6-50.0); HGB 14.8 g/dL (13.0-17.0); Immature Grans, Automated 0.2 %; Lymphocytes # (A) 1.73 X 10*3/uL (0.90-5.00); Lymphocytes % (A) 27.5 %; MCH 30.4 pg (27.0-32.0); MCHC 34.7 g/dL (32.0-37.0); MCV 87.5 fL (80.0-97.0); Mean Platelet Volume 12.6 fL (9.5-12.2); Monocytes # (A) 0.53 X 10*3/uL (0.20-1.00); Monocytes % (A) 8.4 %; NRBC Per 100 WBC 0 /100 WBCS (0.0-0.0); Neutrophils # (A) 3.88 X 10*3/uL (1.80-7.70); Neutrophils % (A) 61.7 %; Platelet Count 218 X 10*3/uL (140-440); RBC 4.87 X 10*6/uL (4.40-5.60); RDW 12.7 % (11.5-14.5); WBC 6.29 X 10*3/uL (4.50-10.00)
[2022-06-19 19:44] LABS: Anion Gap 12.3 mmol/L (10.00-18.00); Carbon Dioxide 28.4 mmol/L (20.0-27.5); Potassium 4.4 mmol/L (3.5-5.5)
== END | disposition home or self-care (01) ==
LOC: LABPAT 11:36
PROVIDERS: ATTEND Orthopaedic Surgery Hand Surgery
DX: Z01.812 Encounter for preprocedural laboratory examination (principal); Z01.818 Encounter for other preprocedural examination; S69.82XA Other specified injuries of left wrist, hand and finger(s), initial encounter; X58.XXXA Exposure to other specified factors, initial encounter
CPT/HCPCS: 80051; 85025; 93005

== ENCOUNTER 2022-06-27 09:13 | Day surgery (SDC) | payer BC, OTHER ==
[2022-06-22 12:01] VITALS: BMI 18.6
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
[~2022-06-27 09:13] MED LIST: DEXAMETHASONE SOD PHOSPHATE 4 MG/ML 1 ML VIAL IV ONE; HYDROmorphone 0.5 MG/0.5 ML SYRINGE IVP PRN; LACTATED RINGERS 1,000 ML IV SCH; LIDOCAINE 1% (10MG/ML) FOR IV START INTRADERMA PRN; ONDANSETRON 4 MG/2 ML VIAL IVP ONE; SCOPOLAMINE 1 MG/72 HR PATCH TRANSDERM ONE
[2022-06-27 10:12] LABS: Glucose,Whole Blood 131 mg/dL (70-110)
[2022-06-27] MEDS ORDERED: LIDOCAINE 2% INJ 20 MG/ML (2 ML VIAL) ONE (11:17)
[2022-06-27] MEDS ORDERED: fentaNYL (PF) 50 MCG/ML 2 ML AMP ONE (11:17)
[2022-06-27] MEDS ORDERED: MIDAZOLAM 2 MG/2 ML VIAL ONE (11:17)
[2022-06-27] MEDS ORDERED: PROPOFOL 10 MG/ML 20 ML VIAL IV ONE (11:17)
[2022-06-27] MEDS ORDERED: PHENYLEPHRINE-0.9% NACL SYG 1,000 MCG/10 ML SYRINGE ONE (11:17)
[2022-06-27] MEDS ORDERED: BUPIVACAINE (PF) 0.5% 30 ML VIAL SQ ONE (11:56)
[2022-06-27] MEDS ORDERED: LIDOCAINE 1% INJ 10MG/ML (10 ML MDV) SQ ONE (11:56)
[2022-06-27 12:13] VITALS: TEMP 97.2
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
[2022-06-27 12:48] LABS: Glucose,Whole Blood 104 mg/dL (70-110)
[2022-06-27] MEDS ORDERED: KETOROLAC 15 MG/ML 1 ML VIAL IVP STA (12:52)
[2022-06-27] MEDS ORDERED: KETOROLAC 15 MG/ML 1 ML VIAL ONE (12:53)
[2022-06-27 13:19] VITALS: BP 132/81; PULSE 91; RESP 16
== END 2022-06-27 13:30 | disposition home or self-care (01) ==
LOC: OR 09:13
PROVIDERS: ATTEND Orthopaedic Surgery Hand Surgery
DX: S61.432A Puncture wound without foreign body of left hand, initial encounter (principal); Y92.410 Unspecified street and highway as the place of occurrence of the external cause; V40.0XXA Car driver injured in collision with pedestrian or animal in nontraffic accident, initial encounter; E11.9 Type 2 diabetes mellitus without complications; Z79.4 Long term (current) use of insulin; K21.9 Gastro-esophageal reflux disease without esophagitis; E78.5 Hyperlipidemia, unspecified; I10 Essential (primary) hypertension; Z98.890 Other specified postprocedural states; Z80.0 Family history of malignant neoplasm of digestive organs; Z80.8 Family history of malignant neoplasm of other organs or systems; Z82.49 Family history of ischemic heart disease and other diseases of the circulatory system; Z79.02 Long term (current) use of antithrombotics/antiplatelets; Z79.1 Long term (current) use of non-steroidal anti-inflammatories (NSAID); Z79.899 Other long term (current) drug therapy; Z88.8 Allergy status to other drugs, medicaments and biological substances
CPT/HCPCS: 20103; J2250; J1100; J2405; J0690; J3010; J1885; J2370; J2001 ×2; J2704

== ENCOUNTER → 2022-10-17 | Outpatient (CLI) | payer OTHER ==
[2022-10-17 10:32] VITALS: BP 139/93; PULSE 95; RESP 18; TEMP 98.1
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
== END ==
LOC: PNWHC3 09:54
PROVIDERS: ATTEND Specialist
DX: M51.36 Other intervertebral disc degeneration, lumbar region (principal); M54.50 Low back pain, unspecified; M48.061 Spinal stenosis, lumbar region without neurogenic claudication; E10.9 Type 1 diabetes mellitus without complications; M47.26 Other spondylosis with radiculopathy, lumbar region; I10 Essential (primary) hypertension; M19.90 Unspecified osteoarthritis, unspecified site; K21.9 Gastro-esophageal reflux disease without esophagitis; Z88.9 Allergy status to unspecified drugs, medicaments and biological substances; Z88.2 Allergy status to sulfonamides; Z79.4 Long term (current) use of insulin
CPT/HCPCS: 99211

== ENCOUNTER 2022-10-18 08:06 | Day surgery (SDC) | payer OTHER ==
[2022-10-18] MEDS ORDERED: diazePAM 5 MG TAB PO PRN (08:37)
[2022-10-18 08:50] VITALS: TEMP 97.7
[2022-10-18 09:12] LABS: Glucose,Whole Blood 348 mg/dL (70-110)
[2022-10-18 09:44] VITALS: RESP 16
[2022-10-18 10:10] LABS: Glucose,Whole Blood 302 mg/dL (70-110)
--- NOTE | 2022-10-18 10:32 | FL ---
INDICATION: Patient age:Male; 52 years old; Reason for study: M47.26; H, with history of lumbar and thoracic M47.26. COMPARISON: CT lumbar spine study from 05/30/2022. After the procedure was explained and informed consent was obtained from the patient, the patient was prepped and draped in the usual sterile fashion. Patient was put in the prone position and the lower lumbar spine was imaged. 1% Lidocaine was used as local anesthetic using a 25 gauge needle. A 22 gau WeDeliver spinal needle was then advanced into the thecal sac at L4-L5 using fluoroscopic guidance. Approxim ately 12 cc of Isovue-M 200 contrast was injected into the thecal sac. The needle was then removed a nd a Band-Aid was applied. The patient tolerated procedure well. The patient was then sent to the CT unit for CT exam. Fluoroscopic time: 10 contents Fluoroscopic images: 3 IMPRESSIONS: Successful myelogram with CT myelogram to follow.
--- NOTE | 2022-10-18 11:52 | CT ---
EXAMINATION TYPE: CT lumbar spine w con CT DLP: 408.7 mGycm, Automated exposure control for dose reduction was used. DATE OF EXAM: 10/18/2022 10:06 AM COMPARISON: Lumbar spine radiograph 06/19/2022, CT lumbar spine 05/30/2022. CLINICAL INDICATION:Male, 52 years old with history of M47.26; PHH, Lumbar spine myelogram. TECHNIQUE: Multiple axial images were obtained to the lumbar spine. Coronal and sagittal reformats were performed as well as axial reformats through each disc space. Intrathecal contrast was administ ered prior to the study under fluoroscopy. See the procedure report for further description of the i ntrathecal contrast installation. One or more CT dose reduction strategies were utilized during this examination. FINDINGS: Motion degraded examination Alignment: There are 5 lumbar type vertebral bodies within normal alignment. The conus medullaris ter minates at L1. Bone: No evidence of fracture is identified. Discs: T12-L1: No spinal canal or neural foraminal stenosis is identified. No disc bulge or herniation ident ified. L1-L2: No spinal canal or neural foraminal stenosis is identified. No disc bulge or herniation identi fied. L2-L3: No spinal canal or neural foraminal stenosis is identified. No disc bulge or herniation identi fied. L3-L4: No spinal canal or neural foraminal stenosis is identified. No disc bulge or herniation identi fied. L4-L5: Mild broad-based disc bulge without significant effacement of the anterior thecal sac. Severe left facet joint arthropathy. Mild right facet arthropathy. Mild bilateral neural foraminal stenosis .. L5-S1: No spinal canal or neural foraminal stenosis is identified. The disc is round along its graduating machine operator ior contour without herniation or bulge. Mild bilateral facet arthropathy. Other: Degenerative changes of the right SI joint. IMPRESSION: 1. No evidence of fracture of the lumbar spine. 2. Mild disc bulge at L4-L5 without significant effacement of the anterior thecal sac. Bilateral face t arthropathy with mild bilateral neural foraminal stenosis.
[2022-10-18 14:46] VITALS: BP 149/79; PULSE 100
== END 2022-10-18 14:01 | disposition home or self-care (01) ==
LOC: RADPROMAIN 08:06
PROVIDERS: ATTEND Orthopaedic Surgery
DX: M51.36 Other intervertebral disc degeneration, lumbar region (principal); M48.061 Spinal stenosis, lumbar region without neurogenic claudication; M47.816 Spondylosis without myelopathy or radiculopathy, lumbar region
CPT/HCPCS: 62304; 72132

== ENCOUNTER 2022-11-13 05:59 | Day surgery (SDC) | payer OTHER ==
[2022-11-09 08:42] VITALS: BMI 19.3
[2022-11-13 06:27] VITALS: TEMP 97.7
[2022-11-13] MEDS ORDERED: LACTATED RINGERS 1,000 ML IV ONE (06:32)
[2022-11-13 06:37] LABS: Glucose,Whole Blood 74 mg/dL (70-110)
[2022-11-13] MEDS ORDERED: MIDAZOLAM 2 MG/2 ML VIAL ONE (07:04)
[2022-11-13] MEDS ORDERED: methylPREDNISolone ACETATE 40 MG/ML 1 ML VIAL ONE (07:04)
[2022-11-13] MEDS ORDERED: IOPAMIDOL M200 10 ML VIAL ONE (07:04)
[2022-11-13] MEDS ORDERED: fentaNYL (PF) 50 MCG/ML 2 ML AMP ONE (07:04)
[2022-11-13] MEDS ORDERED: LACTATED RINGERS 1,000 ML IV SCH (07:10)
[2022-11-13] MEDS ORDERED: LIDOCAINE 1% (10MG/ML) FOR IV START INTRADERMA PRN (07:10)
--- NOTE | 2022-11-13 07:15 | P.PCN ---
Date of Procedure: 11/13/22 Procedure(s) Performed: PREOPERATIVE DIAGNOSIS: 1-Lumbar radiculopathy . 2-lumbar degenerative disc disease. 3-lumbar spondylosis with lumbar facet arthropathy without myelopathy POSTOPERATIVE DIAGNOSIS: 1-lumbar radiculopathy. 2-lumbar degenerative disc disease. 3-lumbar spondylosis with facet arthropathy without myelopathy PROCEDURE 1. Transforaminal epidural steroid injection under fluoroscopic guidance at left L4-5 level. (Fluoroscopy images stored on file in the radiology Department ) 2. Lumbar epidurogram . ANESTHESIA: Local with 1% lidocaine 3 ml , moderate sedation with intravenous Versed 1 mg and fentanyle 50 micrograms. Sedation start time : 0707 . Sedation. stop time : 0 712 . EBL: Minimal PROCEDURE INDICATION: The patient with low back pain and radiculopathy symptoms unresponsive to conservative treatment. PROCEDURE DESCRIPTION / TECHNIQUE: The patient was seen and identified in the preoperative area. Risks, benefits, complications, and alternatives were discussed with the patient. The patient agreed to proceed with the procedure and signed the consent. IV was started, and vital signs were stable. Patient was taken to the OR and time out was completed. The patient was placed in the prone position on procedure table and a pillow was placed under the abdomen to reduce lumbar lordosis. The lumbosacral area was prepped and draped in the usual sterile fashion. Critical pause was taken. Vital signs were closely monitored during the procedure. Conscious sedation was used during the procedure to decrease patient s anxiety. Using oblique fluoroscopy, the chin of the `Nickiy dog at left L4-5 level was identified, and the skin and deeper tissues just below was localized with 1% lidocaine. Subsequently, a 22-gauge 3.5-inch spinal needle was advanced under a tunneled view fluoroscopic guidance just underneath the chin of the `Nickiy dog at the left L4-5 Under lateral fluoroscopy, the needle was then advanced to the posterior border of the interforaminal space. After negative aspiration of CSF and blood and with no paresthesias, 1 mL Isovue 200 contrast dye was injected excellent epidurogram and outlining of the nerve root Subsequently, 3 mL of block solution containing 40 mg Depo-Medrol and 2 mL of 0.9% normal saline PF was injected. Needle was removed . At the end of the procedure, skin was cleansed, and bandages were applied. COMPLICATIONS:none DISPOSITION / PLANS: The patient was placed in a supine position and transferred to the recovery area in a stable condition for observation. There was no evidence of lower extremity motor or sensory deficit after the procedure. Patient was discharged from the recovery room after meeting discharge criteria. Home discharge instructions were given to the patient by the staff. The patient was reexamined prior to discharge.
[2022-11-13] MEDS ORDERED: IV FLUID CONTINUATION 1,000 ML IV ONE ×2 (07:17)
[2022-11-13 07:27] LABS: Glucose,Whole Blood 94 mg/dL (70-110)
[2022-11-13 07:37] VITALS: BP 154/86; PULSE 84; RESP 18
--- NOTE | 2022-11-13 08:50 | FL ---
Intraoperative/procedural fluoroscopic services were provided. Total fluoroscopy time is 3 seconds wi th a total of 1 submitted images to PACS. Please see the operative/procedural note for further detail s. DAP: [phone]
== END 2022-11-13 08:10 | disposition home or self-care (01) ==
LOC: ORPAIN 05:59
PROVIDERS: ATTEND Specialist
DX: M51.16 Intervertebral disc disorders with radiculopathy, lumbar region (principal); M47.26 Other spondylosis with radiculopathy, lumbar region; Z88.2 Allergy status to sulfonamides; Z88.8 Allergy status to other drugs, medicaments and biological substances
CPT/HCPCS: 64483; J2250; J1030; J3010; Q9966

== ENCOUNTER → 2022-12-06 | Outpatient (CLI) | payer OTHER ==
[2022-12-06 10:38] VITALS: BP 135/84; PULSE 94; RESP 16; TEMP 98.2
--- NOTE | 2022-12-06 14:13 | P.PAINPG ---
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 Pt states he received 0% relief s/p procedure. Pain level is provoked at 8/10 in intensity, constant, localized in the center lumbar spine, sharp in character w/o shooting pain. Pain is provoked by . Pain is alleviated with PT x 6 wks in Apr 2022, medications, repositioning and rest. Interventional pain procedures completed include TFESI L4-L5 Patient is currently on Neurontin, Tramadol Patient denies any side effects of the medication(s), denies excessive drowsiness or sleepiness, denies suicidal ideation and reports that the current pain medication is helping to control the pain and improve activities of daily living. Patient denies any motor or sensory deficits. Patient denies any fever or night sweats, denies any change in the bowel movements or urination. Physical Examination: -Constitutional: Cooperative. Not in acute distress . - Neurologic: Cranial nerve II to XII intact. No focal neurological deficits. - Psychatric: Alert & oriented x 3. Matching mood & appropriate affect. Judgment and insight intact. - Musculoskeletal: Cervical spine: Muscle bulk/ tone/ strength in the bilateral upper extremities normal Vertebral body tenderness to palpation over Spurling test positive Distraction test positive Facet loading test positive TTP Thoracic spine Muscle bulk / tone/ strength in the bilateral paraspinal muscles normal Vertebral body tender to palpation over Facet loading test positive TTP Lumbar spine: Motor bulk/ tone/ strength lower extremities , thigh and legs : 5/5 Deep tendon reflexes : Normal Knee Jerk. Normal Ankle Jerk . Vertebral body tenderness to palpation over L4 Lumbar Facet Loading Test positive Straight Leg Raise: positive at 30 degrees right side/ left side Gaenslen's Test positive Sacral spine : Severe tenderness over the Sacroiliac joint: right side / left side Range of motion: Flexion of the lumbar spine <60 degrees Range of motion: Extension of the lumbar spine <20 degrees Gaenslen's Test positive right side / left side Drea test: positive right side / left side Thigh Thrust Test positive right side / left side Sacral Thrust Test positive right side / left side Assessment and plan: Chronic LBP secondary to lumbar DDD, spondylosis with facet arthropathy without myelopathy Pt will follow up w his orthopedic surgeon to explore additional treatment options. All questions answered. I have spent less than 30 minutes on patient care today. Dr Bowers was available by phone for the evaluation of this patient. The time was used to review the medical records including relevant urine studies and Prescription history (MAPs), review of the available imaging, evaluation and examination of the patient, coordination of care with the medical staff and if applicable referring physicians, as well as creation of the medical record PQRS Narrative: Smoking Status Never smoker Hx Alcohol Use (MH) No Home Medications: Ambulatory Orders Ergocalciferol [Vitamin D2 (1250 Mcg = 54533 Iu)] 1,250 mcg PO TH 06/22/22 Loratadine [Claritin] 10 mg PO DAILY 06/22/22 Pantoprazole [Protonix] 40 mg PO AC-SUPPER 06/22/22 atenoloL [Tenormin] 12.5 mg PO DAILY 06/22/22 Gabapentin [Neurontin] 300 mg PO BID 10/03/22 Gabapentin [Neurontin] 600 mg PO HS 10/03/22 INSULIN LISPRO (For Pump) [humaLOG (For Pump)] 0.01 units SQ-PUMP CONTINUOUS 10/03/22 hydrOXYzine HCL 20 mg PO HS 10/03/22 methocarbamoL [Methocarbamol] 750 mg PO TID 10/03/22 Controlled Substance Measures - Controlled Substance Measures Is patient prescribed a controlled substance at discharge?: No
== END | disposition home or self-care (01) ==
LOC: PNWHC3 09:48
PROVIDERS: ATTEND Specialist
DX: M51.36 Other intervertebral disc degeneration, lumbar region (principal); M47.816 Spondylosis without myelopathy or radiculopathy, lumbar region; Z88.2 Allergy status to sulfonamides; Z88.8 Allergy status to other drugs, medicaments and biological substances
CPT/HCPCS: 99211

== ENCOUNTER → 2023-02-04 | Outpatient (CLI) | payer OTHER ==
[2023-02-04 10:31] VITALS: BP 103/75; PULSE 96; RESP 16; TEMP 98
--- NOTE | 2023-02-04 14:29 | P.PAINPG ---
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 Pain level is provoked at 10/10 in intensity, constant, localized in the L lumbar spine, sharp in jone racter w/o shooting pain. Pain is provoked by standing/ walking for periods of 15 min or more. Pain is alleviated with PT x 6 wks in Apr 2022, medications, repositioning and rest. Oswestry axial pain score of 44. Interventional pain procedures completed include TFESI L4-L5 Patient is currently on Neurontin, Tramadol Patient denies any side effects of the medication(s), denies excessive drowsiness or sleepiness, denies suicidal ideation and reports that the current pain medication is helping to control the pain and improve activities of daily living. Patient denies any motor or sensory deficits. Patient denies any fever or night sweats, denies any change in the bowel movements or urination. Physical Examination: -Constitutional: Cooperative. Not in acute distress . - Neurologic: Cranial nerve II to XII intact. No focal neurological deficits. - Psychatric: Alert & oriented x 3. Matching mood & appropriate affect. Judgment and insight intact. - Musculoskeletal: Cervical spine: Muscle bulk/ tone/ strength in the bilateral upper extremities normal Vertebral body tenderness to palpation over Spurling test positive Distraction test positive Facet loading test positive TTP Thoracic spine Muscle bulk / tone/ strength in the bilateral paraspinal muscles normal Vertebral body tender to palpation over Facet loading test positive TTP Lumbar spine: Motor bulk/ tone/ strength lower extremities , thigh and legs : 5/5 Deep tendon reflexes : Normal Knee Jerk. Normal Ankle Jerk . Vertebral body tenderness to palpation Lumbar Facet Loading Test positive over L L4-L5, L5-S1 Straight Leg Raise: positive at 30 degrees right side/ left side Gaenslen's Test positive Sacral spine : Severe tenderness over the Sacroiliac joint: right side / left side Range of motion: Flexion of the lumbar spine <60 degrees Range of motion: Extension of the lumbar spine <20 degrees Gaenslen's Test positive right side / left side Drea test: positive right side / left side Thigh Thrust Test positive right side / left side Sacral Thrust Test positive right side / left side Assessment and plan: Chronic LBP secondary to lumbar DDD, spondylosis with facet arthropathy without myelopathy Recommendation of L MBB L4-L5, L5-S1 #1. May need a series fo injections, up until RFA, for optimal pain relief. Risks, benefits of procedure discussed and patient verbalized understanding. Protocol for discontinuation/continuation of medications surrounding procedure discussed. All questions answered. I have spent less than 30 minutes on patient care today. Dr Bowers was available by phone for the evaluation of this patient. The time was used to review the medical records including relevant urine studies and Prescription history (MAPs), review of the available imaging, evaluation and examination of the patient, coordination of care with the medical staff and if applicable referring physicians, as well as creation of the medical record PQRS Narrative: Smoking Status Never smoker Hx Alcohol Use (MH) No Home Medications: Ambulatory Orders Ergocalciferol [Vitamin D2 (1250 Mcg = 45525 Iu)] 1,250 mcg PO TH 06/22/22 Loratadine [Claritin] 10 mg PO DAILY 06/22/22 Pantoprazole [Protonix] 40 mg PO AC-SUPPER 06/22/22 atenoloL [Tenormin] 12.5 mg PO DAILY 06/22/22 Gabapentin [Neurontin] 300 mg PO BID 10/03/22 Gabapentin [Neurontin] 600 mg PO HS 10/03/22 INSULIN LISPRO (For Pump) [humaLOG (For Pump)] 0.01 units SQ-PUMP CONTINUOUS 10/03/22 hydrOXYzine HCL 20 mg PO HS 10/03/22 methocarbamoL [Methocarbamol] 750 mg PO TID 10/03/22 Controlled Substance Measures - Controlled Substance Measures Is patient prescribed a controlled substance at discharge?: No
== END ==
LOC: PNWHC3 09:25
PROVIDERS: ATTEND Specialist
DX: M51.37 Other intervertebral disc degeneration, lumbosacral region (principal); G89.29 Other chronic pain; M47.817 Spondylosis without myelopathy or radiculopathy, lumbosacral region; M53.3 Sacrococcygeal disorders, not elsewhere classified; Z88.2 Allergy status to sulfonamides; Z88.8 Allergy status to other drugs, medicaments and biological substances
CPT/HCPCS: 99211

== ENCOUNTER → 2023-04-29 | Outpatient (CLI) | payer OTHER ==
[2023-04-29 16:24] LABS: BUN/Creat Ratio 22.75 Ratio (12.00-20.00); Blood Urea Nitrogen 18.2 mg/dL (9.0-27.0); Calcium 9.7 mg/dL (8.7-10.3); Carbon Dioxide 28.2 mmol/L (21.6-31.8); Chloride 105 mmol/L (96-109); Glucose 84 mg/dL (70-110); Potassium 4.4 mmol/L (3.5-5.5); Sodium 143 mmol/L (135-145)
[2023-04-29 17:18] LABS: Basophils # (A) 0.06 X 10*3/uL (0.00-0.10); Eosinophils # (A) 0.13 X 10*3/uL (0.04-0.35); Eosinophils % (A) 2.1 %; HCT 45.2 % (39.6-50.0); HGB 14.8 d/dL (13.0-17.0); Lymphocytes # (A) 2.07 X 10*3/uL (0.90-5.00); Lymphocytes % (A) 33.3 %; MCH 29.1 pg (27.0-32.0); MCHC 32.7 d/dL (32.0-37.0); MCV 88.8 FL (80.0-97.0); Mean Platelet Volume 13.9 FL (9.5-12.2); Monocytes # (A) 0.44 X 10*3/uL (0.20-1.00); Monocytes % (A) 7.1 %; NRBC Per 100 WBC 0 X 10*3/uL (0.00-0.01); Neutrophils % (A) 56.2 %; Platelet Count 155 X 10*3/uL (140-440); RBC 5.09 X 10*6/uL (4.40-5.60); RDW 12.9 % (11.5-14.5); WBC 6.22 X 10*3/uL (4.50-10.00)
[2023-04-29 17:38] LABS: Prothrombin Time 11.3 sec (9.9-11.9)
== END | disposition home or self-care (01) ==
LOC: LABPAT 08:39
PROVIDERS: ATTEND Orthopaedic Surgery
DX: Z01.812 Encounter for preprocedural laboratory examination (principal); Z22.322 Carrier or suspected carrier of Methicillin resistant Staphylococcus aureus; M43.16 Spondylolisthesis, lumbar region; M54.12 Radiculopathy, cervical region
CPT/HCPCS: 36415; 80048; 85025; 85610; 86850; 86900; 86901; 87070

== ENCOUNTER 2023-05-07 09:56 | Day surgery (SDC) | payer OTHER ==
[~2023-05-07 09:56] MED LIST changes: +ACETAMINOPHEN TAB 500 MG TAB PO PRN; +GABAPENTIN 300 MG CAP PO PRN; -HYDROmorphone 0.5 MG/0.5 ML SYRINGE IVP PRN; -LACTATED RINGERS 1,000 ML IV SCH; +MIDAZOLAM 2 MG/2 ML VIAL IV PRN; +ONDANSETRON 4 MG/2 ML VIAL IVP PRN; -SCOPOLAMINE 1 MG/72 HR PATCH TRANSDERM ONE; +TRANEXAMIC 1,000 MG/100ML-NACL 1,000 MG in SALINE 1 100ML.BAG IVPB PRN
[2023-05-07] MEDS: LACTATED RINGERS 1,000 ML IV SCH (10:40)
[2023-05-07 11:15] LABS: Glucose,Whole Blood 215 mg/dL (70-110)
[2023-05-07] MEDS ORDERED: INSULIN ASPART (NovoLOG) 100 UNIT/ML VIAL SQ ONE ×2 (11:58→21:29)
[2023-05-07] MEDS ORDERED: LACTATED RINGERS 1,000 ML IV ONE (13:01)
[2023-05-07] MEDS ORDERED: GELATIN SPONGE,ABSORB (LARGE) 1 EACH SPONGE TOPICAL ONE (13:50)
[2023-05-07] MEDS ORDERED: THROMBIN (BOVINE) 5,000 UNIT VIAL TOPICAL ONE (13:50)
--- NOTE | 2023-05-07 14:34 | XR ---
Intraoperative/procedural fluoroscopic services were provided for minimally invasive lumbar fusion L4 -L5. Total fluoroscopy time is 49 seconds with a total of 4 submitted images to PACS. Total DAP 4.737 1 Gycm2. Please see the operative note for further details.
--- NOTE | 2023-05-07 14:40 | P.OP ---
Date of Procedure: 05/07/23 Preoperative Diagnosis: 1. L4-5 SPONDYLOLISTHESIS WITH SPONDYLOLYSIS GRADE I 2. LOW BACK PAIN 3. LE RADICULOPATHY WITH WEAKNESS 4. COMPLEX MEDICAL PATIENT Postoperative Diagnosis: 1. L4-5 SPONDYLOLISTHESIS WITH SPONDYLOLYSIS GRADE I 2. LOW BACK PAIN 3. LE RADICULOPATHY WITH WEAKNESS 4. COMPLEX MEDICAL PATIENT Procedure(s) Performed: 1. L4-5 POSTERIOLATERAL AND INTERBODY FUSION (62157) 2. L4-5 INSTRUMENTATION (45721) 3. L4-5 LAMINOFORAMINOTOMY FOR DECOMPRESSION AND CAGE PLACEMENT (83194) 4. INSERTION OF BIOMECHANICAL DEVICE (03172) 5. USE OF REY NAVIGATION FOR SCREW PLACEMENT (65726) USE OF IONM USE OF IO MICROSCOPE Implants: -REY EVEREST SCREW AND EMIGDIO SYSTEM -GLOBUS SABLE CAGE -MAGNATOS, AUTOGRAFT, ALLOGRAFT, IFACTOR, ALLOCELL, ARTHROCELL Anesthesia: GETA Surgeon: Yaw Whiting Cab Starter #1: James Garcia (WAS PRESENT AND ASSISTED WITH ALL ASPECTS OF THE CASE FROM POSITION TO CLOSURE) Estimated Blood Loss (ml): 50 IV fluids (ml): 1,100 Urine output (ml): 250 Pathology: none sent Condition: stable Disposition: PACU Indications for Procedure: Mr. Gross is presenting for evaluation of lumbar pain. It was my pleasure to have seen and examined Mr. Gross. In our visit today we have had a chance to go over subjective complaints, physical examination findings and treatments including the natural course history without intervention and various interventional options. The patients imaging demonstrates: CT [facility] of Lumbar Spine: IMPRESSION: 1. No evidence of fracture of the lumbar spine. 2. Mild disc bulge at L4-L5 without significant effacement of the anterior thecal sac. Bilateral facet arthropathy with mild bilateral neural foraminal stenosis. XRay Lumbar Multiview (AP, Lateral, Flexion, Extension) with AP pelvis; 5 views taken at [facility] on 06/19/22: moderate spondylitic and degenerative changes L4-S1 with preserved alignment. Disc height loss L4-S1. Vertebral body heights are preserved. No acute osseous abnormalities. CT scancompleted at Outside facility from 05/30/22 of Lumbar Spine: 1. Mild disc bulges L4-5 and L5-S1 discussed above. 2. No acute changes identified. On physical exam, Mr. Gross demonstrates: He continues to report experiencing sharp pain throughout the low back that radiates into the bilateral lower extremities. He states the left side is greater than the right at this time. The patient notes that he experiencing numbness and tingling throughout the bilateral lower extremities. Patient completed physical therapy with no relief of his symptoms and is continuing with the home exercise program. Patient is having severe sleep disturbances due to his symptoms. The patient notes that his symptoms are exacerbated by prolonged activities, such as walking or standing.. I have explained to the patient that as their condition progresses it will cause further neurological deficits and eventual paralysis. Based on the patients imaging, physical exam, and the rapid progression and disabling nature of their symptoms, at this time I recommend surgery in the form of a: lumbar L4-5 MIS Transforaminal Lumbar Interbody Fusion. I discussed the risk and benefits of this procedure at length with Mr. Gross. The patient [significant other] agreed to considered pursuing the procedure abovementioned. Prior to surgery, she should follow up with her PCP (Cardio, ID, IM etc) for clearance. Questions were invited and answered, and the patient wishes to proceed as outlined below. Currently, I am recommendin.lumbar L4-5 MIS Transforaminal Lumbar Interbody Fusion Description of Procedure: L4-L5 MIS TLIF TABATHA The patient was seen and examined in the preoperative area. All preoperative protocols were followed. Informed consent was obtained risks and benefits of the procedure were discussed at length. Risks including bleeding infection damage to the surrounding tissue and risk of reoperation were discussed with the patient. Risk of anesthesia up to and including was a discussed with the patient. These are outlined in the risk review. They were willing to accept these risks and all the risks of surgery. The patient was given a weight-based dose of antibiotics in the form of 2 g Ancef. The patient was seen and evaluated by the anesthesia team who deemed them fit for surgery. The site was marked, the patient was willing to proceed with the procedure. The patient was transferred to the operative suite by the Department of a nesthesia. They were then drifted off to sleep by the department anesthesia and GETA was performed. The patient tolerated this well. Hood catheter was placed by nursing staff, a-traumatically. Once confirmation of lines and ventilation the patient was transferred to a prone Derek table very carefully. All bony prominences including wrists, elbows, axilla, chest, hips, and thighs, and feet were padded very well. Special attention was paid to the genitalia, and these were padded accordingly. SCDs were placed on bilateral lower extremities and were connected. Arms were well padded and placed on arm boards up and out in the 90/90 position. Once in position, again we confirmed good ventilation capabilities and that lines were running appropriately. The patients Lumbar spine was then exposed. 1010s were placed outlining the incision site. Standard alcohol was used to clean the incision site and allowed to dry. C-arm was used to needle localize the pedicles at L4-5 and bio-arlin the patient and confirm level for incision which was marked with a skin marker. Operative briefing was performed with all teams and everyone in agreement to proceed. The patient was then prepped and draped in a normal sterile fashion. Timeout was then performed, and all parties agreed with the procedure to be performed. Skin nicks made and pins placed in the PSIS on the right for the Tilton t racker. 3D Zheim spin was then registered and confirmed to be accurate. Navigated jamshidi and drill-guide were then used to target pedicles bilaterally at L4 and L5. Jamshidi was Once accessed wires were placed in their void. This was repeated at L5 bilaterally. Skin incision was then made along these wires and perfect scalpel was used over the wire to create a path and measure screw length. Screws were then placed over wires on the contralateral side. Once screw was at the back of the body wire was removed. The screws were confirmed to be in good position on AP and lateral. We then tested screws and they all tested above 20 mA. Attention was then turned to interbody fusion at L4-5. Tubular retractor system was placed at the interspace of L4-5 using biplanar c arm. Once in position and dilated up to 26mm tube it was locked to the bed and confirmed in good position. Microscope was then brought in for visualization. Limited myomectomy was performed and laminectomy, complete facetectomy and foraminotomy performed at L4-5 using high speed carlene and Kerrison rongure. The ligamentum was removed and dural sac decompressed. Exiting and traversing roots visualized and deco mpressed. Neural elements were then protected, and disc space accessed with an osteotome. Sequential shaving then done under lateral imaging and complete discectomy performed using myrna, pituitary and curettes. Once good bleeding endplates accomplished and good height roman catholic with trials, a combination of autograft, allograft and synthetic placed anterior in the disc space. The cage was then selected and impacted into place under lateral imaging. The cage was then expanded restoring height, lordosis and alignment. The cage was backfilled with bone graft through a funnel. The boiler house mechanic removed and area inspected. Good cage placement, stable cage and no injuries. Area was irrigated copiously, and meticulous hemostasis achieved. The tubular retractor was then removed under direct visualization. Screws were then selected and placed over the previously placed wires on the ipsilateral side. This was done in the fashion described above. Screws were then tested, and all tested above 20 mA. Shells were then placed on the tabs. Emigdio length was then measured, and rods selected. They were then placed through the MIS tabs, subfascial and locked into L5 bilateral and sequentially reduced into L4 for listhesis reduction. These were then locked into place with set screws and final tightened. Emigdio holders removed and images taken showing good placement of rods good lordosis and roman catholic of height. Tabs were broken off. Wounds were then copiously irrigated with NSS. Carlene used for TP decortication and mixture of MagnatOs, allograft and autograft packed posterolat eral. Facia was then closed with 0 Vircyl on a Scorpion suture passer for MIS closure. Deep subq closed with 0 Vicryl. Superficial subq closed with 2-0 Vicryl and skin with pedro. Wound edges approximated very well. Wound was then cleaned with alcohol and dried. Wounds dressed in Optifoam dressings. The patient was then transferred off the table back to their hospital bed a-traumatically. They were extubated by the department of anesthesia. They were then transferred to PACU in stable condition having tolerated the procedure with no complications.
[2023-05-07] MEDS ORDERED: HYDROmorphone 1 MG/ML 1 ML SYRINGE IVP PRN (14:46)
[2023-05-07] MEDS ORDERED: ONDANSETRON 4 MG/2 ML VIAL IVP PRN (14:46)
[2023-05-07] MEDS ORDERED: CYCLOBENZAPRINE 5 MG TAB PO PRN (14:46)
[2023-05-07] MEDS ORDERED: MAGNESIUM HYDROXIDE 2,400 MG/30 ML CUP PO PRN (14:46)
[2023-05-07] MEDS ORDERED: traMADol 50 MG TAB PO PRN (14:46)
[2023-05-07] MEDS ORDERED: HYDROmorphone 0.5 MG/0.5 ML SYRINGE IVP PRN (14:46)
[2023-05-07] MEDS ORDERED: MEPERIDINE 50 MG/ML SYRINGE IVP ONE (14:49)
[2023-05-07] MEDS: HYDROmorphone 0.5 MG/0.5 ML SYRINGE IVP PRN ×4 (15:00→16:27)
[2023-05-07 15:11] LABS: Glucose,Whole Blood 153 mg/dL (70-110)
[2023-05-07] MEDS: GABAPENTIN 300 MG CAP PO SCH ×2 (17:12→23:28)
[2023-05-07] MEDS: ACETAMINOPHEN TAB 325 MG TAB PO SCH (17:12)
[2023-05-07 17:13] LABS: Glucose,Whole Blood 251 mg/dL (70-110)
[2023-05-07] MEDS: HYDROcodone/APAP 7.5-325MG 1 EACH TAB PO PRN (18:09)
[2023-05-07 20:51] LABS: Glucose,Whole Blood 435 mg/dL (70-110)
[2023-05-07] MEDS ORDERED: INSULIN DETEMIR (LEVEMIR) 100 UNIT/ML SYR SQ ONE (21:30)
--- NOTE | 2023-05-07 22:41 | CT ---
EXAMINATION TYPE: CT lumbar spine wo con DATE OF EXAM: 05/07/2023 COMPARISON: 10/18/2022 HISTORY: S/P lumbar fusion. CT DLP: 663.1 mGycm CONTRAST: None TECHNIQUE: CT of the lumbar spine is performed on a spiral scan at 3 mm thick sections. Reconstructed images are performed in the coronal and sagittal planes. FINDINGS: Vertebral body alignment appears preserved. Fixation pedicle screws and rods been placed L4 -5. Disc spacers present at L4-5. Postsurgical changes are within the soft tissues. No spinal canal s tenosis. No residual disc bulge at L4-5 identified. IMPRESSION: 1. Postsurgical change with fixation and decompression at the L4-5 level.
[2023-05-08] MEDS: ACETAMINOPHEN TAB 325 MG TAB PO SCH ×4 (00:52→17:28)
[2023-05-08] MEDS ORDERED: DEXTROSE 50% SYRINGE 50 ML IVP PRN ×4 (01:48→13:41)
[2023-05-08] MEDS: HYDROcodone/APAP 7.5-325MG 1 EACH TAB PO PRN (04:18)
[2023-05-08 06:07] LABS: Glucose,Whole Blood 307 mg/dL (70-110)
[2023-05-08] MEDS: LACTATED RINGERS 1,000 ML IV SCH (06:22)
[2023-05-08] MEDS: INSULIN ASPART (NovoLOG) 100 UNIT/ML VIAL SQ SCH ×4 (06:26→21:19)
[2023-05-08] MEDS: GABAPENTIN 300 MG CAP PO SCH ×3 (08:06→21:19)
[2023-05-08] MEDS: SENNOSIDES-DOCUSATE SODIUM 1 EACH TAB PO SCH (08:06)
--- NOTE | 2023-05-08 08:49 | P.PN ---
Subjective Progress Note Date: 05/08/23 Principal diagnosis: 1. L4-L5 grade 1 spondylolisthesis with spondylolysis 2. Low back pain 3. Bilateral lower extremity radiculopathy with weakness 4. Complex medical patient Patient seen and examined this morning. Patient was resting currently in bed. He reports that his pain is managed on current regimen. Patient states he was ambulatory to the restroom this morning and tolerated activity well. Patient is looking forward to working with physical therapy later today. Surgical incisions to the lumbar spine, dressings are clean dry and intact. Patient does report improvement into his lower extremities since the procedure. Prescription for a rolling walker has been placed in patient chart. Patient has been afebrile, denies any nausea/vomiting, or any acute concerns at this time. Objective - Vital Signs Vital signs: Vital Signs Temp 98.4 F 05/08/23 07:09 Pulse 85 05/08/23 07:09 Resp 18 05/08/23 07:09 BP 113/70 05/08/23 07:09 Pulse Ox 99 05/08/23 07:09 FiO2 Intake & Output 05/07/23 05/08/23 05/08/23 18:59 06:59 18:59 Intake Total 1230 Output Total 350 600 Balance 880 -600 Weight 56.3 kg Intake: IV 750 Oral 480 Output: Urine 300 600 Estimated Blood Loss 50 Other: Voiding Method Indwelling Catheter - Exam Physical Examination General: The patient is awake and alert, in no acute distress Skin: Skin is warm and dry with no obvious rashes or lesions. Surgical incisions to the lumbar spine, dressings are clean dry and intact with no shadowing noted. Eye: Pupils are equal, round and reactive to light, extra-ocular movements are intact; there is normal conjunctiva bilaterally. Neck: The neck is supple, there is no tenderness and ROM intact. Cardiovascular: There is a regular rate and rhythm. No murmur, rub or gallop is appreciated. Respiratory: Lungs are clear to auscultation, respirations are non-labored, breath sounds are equal. Gastrointestinal: Soft, non-distended, non-tender abdomen. Back: There is no tenderness to palpation in the midline, paralumbar, parathoracic or buttocks region. There is no obvious deformity . Musculoskeletal: ROM limited secondary to pain and stiffness from surgical procedure. Muscle strength in all major muscle groups of bilateral upper extremities 5/5, bilateral lower extremities 4/5. Neurological: CN 2-12 intact. There are no obvious motor or sensory deficits. Movement and coordination equal and intact. Sensory exam to light touch intact C5-T1 and intact from L2-S1. Reflexes 2/4 in bilateral upper and lower extremities. Negative Hoffmans, babinski, and clonus signs. Psychiatric: Cooperative, appropriate mood & affect, normal judgment. - Labs Labs: Abnormal Lab Results - Last 24 Hours (Table) 05/07/23 05/07/23 05/07/23 Range/Units 11:04 15:09 17:11 POC Glucose (mg/dL) 215 H 153 H 251 H (70-110) mg/dL 05/07/23 05/08/23 Range/Units 20:49 06:05 POC Glucose (mg/dL) 435 H 307 H (70-110) mg/dL Assessment and Plan Assessment: Postop day 1: L4-L5 minimally invasive TLIF 1. L4-L5 grade 1 spondylolisthesis with spondylolysis 2. Low back pain 3. Bilateral lower extremity radiculopathy with weakness 4. Complex medical patient Plan: -Appreciate oracle scm consultant and team management. -Activity: Ambulate QID, OOB all meals, up and about, limit lifting bending twisting to less than 5 lbs. Use walker or cane if needed for stability. -Daily PT/OT, increase ambulation strength and balance. -Prescription for a rolling walker has been placed in chart -Pain control: Adequate at this time -Meds: reviewed -GI ppx: senna, Miralax -DVT PPX: OK to restart Heparin tonight -Hygiene: Shower today. Maintain dressing clean and dry. Meticulous cleaning after BMs away from the incision site -Encourage IS 10x/hr -Dispo: Anticipate discharge home tomorrow with homecare *I reviewed and discussed this case with my attending Dr. Whiting, whom has reviewed this chart and films and is in agreement with assessment and plan of care as outlined above. I have personally seen and examined the patient, performed the documentation and the assessment and plan as written. Number of minutes spent on the visit: 15m.
[2023-05-08 11:34] LABS: Glucose,Whole Blood 403 mg/dL (70-110)
[2023-05-08] MEDS ORDERED: INSULIN ASPART (NovoLOG) 100 UNIT/ML VIAL SQ ONE (12:57)
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
[2023-05-08] MEDS: HYDROcodone/APAP 10-325MG 1 EACH TAB PO PRN ×2 (14:35→20:13)
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
[2023-05-08 16:41] LABS: Glucose,Whole Blood 132 mg/dL (70-110)
[2023-05-08] MEDS ORDERED: INSULIN ASPART (NovoLOG) 100 UNIT/ML VIAL SQ SCH (17:30)
[2023-05-08] MEDS ORDERED: ATORVASTATIN 10 MG TAB PO SCH (21:00)
[2023-05-08 21:04] LABS: Glucose,Whole Blood 325 mg/dL (70-110)
[2023-05-08] MEDS: INSULIN DETEMIR (LEVEMIR) 100 UNIT/ML SYR SQ SCH (21:20)
[2023-05-09] MEDS: ACETAMINOPHEN TAB 325 MG TAB PO SCH ×3 (00:19→11:17)
[2023-05-09 06:13] LABS: Glucose,Whole Blood 243 mg/dL (70-110)
[2023-05-09] MEDS: HYDROcodone/APAP 7.5-325MG 1 EACH TAB PO PRN (07:03)
[2023-05-09] MEDS: INSULIN ASPART (NovoLOG) 100 UNIT/ML VIAL SQ SCH ×2 (07:04→12:02)
[2023-05-09] MEDS: INSULIN DETEMIR (LEVEMIR) 100 UNIT/ML SYR SQ SCH (07:04)
[2023-05-09] MEDS: LACTATED RINGERS 1,000 ML IV SCH (07:18)
[2023-05-09] MEDS ORDERED: INSULIN ASPART (NovoLOG) 100 UNIT/ML VIAL SQ SCH ×2 (07:30→12:30)
[2023-05-09] MEDS: SENNOSIDES-DOCUSATE SODIUM 1 EACH TAB PO SCH (08:05)
[2023-05-09] MEDS: GABAPENTIN 300 MG CAP PO SCH (08:05)
--- NOTE | 2023-05-09 08:46 | P.PN ---
Subjective Progress Note Date: 05/09/23 Principal diagnosis: 1. L4-L5 grade 1 spondylolisthesis with spondylolysis 2. Low back pain 3. Bilateral lower extremity radiculopathy with weakness 4. Complex medical patient Patient seen and examined this morning. Patient was resting currently in bed. He reports that his pain is managed on current regimen. Patient states he is ambulatory with rolling walker and tolerating activity well. Surgical incisions to the lumbar spine, dressings are clean dry and intact. Patient does report improvement into his lower extremities since the procedure, he states he no longer has the shooting pains. Pateint does report that there is some further authorization needed for his walker. Patient states he does have a standard walker that he can borrow until his is approved. Patient has been afebrile, denies any nausea/vomiting, or any acute concerns at this time. Objective - Vital Signs Vital signs: Vital Signs Temp 98.2 F 05/09/23 01:09 Pulse 89 05/09/23 01:09 Resp 19 05/09/23 01:09 BP 127/76 05/09/23 01:09 Pulse Ox 94 L 05/09/23 01:09 FiO2 Intake & Output 05/08/23 05/09/23 05/09/23 18:59 06:59 18:59 Other: Voiding Method Toilet Toilet Urinal # Voids 3 2 - Exam Physical Examination General: The patient is awake and alert, in no acute distress Skin: Skin is warm and dry with no obvious rashes or lesions. Surgical incisions to the lumbar spine, dressings are clean dry and intact with no shadowing noted. Eye: Pupils are equal, round and reactive to light, extra-ocular movements are intact; there is normal conjunctiva bilaterally. Neck: The neck is supple, there is no tenderness and ROM intact. Cardiovascular: There is a regular rate and rhythm. No murmur, rub or gallop is appreciated. Respiratory: Lungs are clear to auscultation, respirations are non-labored, breath sounds are equal. Gastrointestinal: Soft, non-distended, non-tender abdomen. Back: There is no tenderness to palpation in the midline, paralumbar, parathoracic or buttocks region. There is no obvious deformity . Musculoskeletal: ROM limited secondary to pain and stiffness from surgical procedure. Muscle strength in all major muscle groups of bilateral upper extremities 5/5, bilateral lower extremities 4/5. Neurological: CN 2-12 intact. There are no obvious motor or sensory deficits. Movement and coordination equal and intact. Sensory exam to light touch intact C5-T1 and intact from L2-S1. Reflexes 2/4 in bilateral upper and lower extremities. Negative Hoffmans, babinski, and clonus signs. Psychiatric: Cooperative, appropriate mood & affect, normal judgment. - Labs Labs: Abnormal Lab Results - Last 24 Hours (Table) 05/08/23 05/08/23 05/08/23 Range/Units 11:33 16:40 21:04 POC Glucose (mg/dL) 403 H 132 H 325 H (70-110) mg/dL 05/09/23 Range/Units 06:11 POC Glucose (mg/dL) 243 H (70-110) mg/dL Assessment and Plan Assessment: Postop day 2: L4-L5 minimally invasive TLIF 1. L4-L5 grade 1 spondylolisthesis with spondylolysis 2. Low back pain 3. Bilateral lower extremity radiculopathy with weakness 4. Complex medical patient Plan: -Appreciate new vehicle sales consultant and team management. -Activity: Ambulate QID, OOB all meals, up and about, limit lifting bending twisting to less than 5 lbs. Use walker or cane if needed for stability. -Daily PT/OT, increase ambulation strength and balance. -Awaiting auth for rolling walker, patient can borrow a standard walker at this time until approval. -Pain control: Adequate at this time -Meds: reviewed -GI ppx: senna, Miralax -DVT PPX: Heparin -Hygiene: Shower today. Maintain dressing clean and dry. Meticulous cleaning after BMs away from the incision site -Encourage IS 10x/hr -Dispo: Discharge home tomorrow with homecare today *I reviewed and discussed this case with my attending Dr. Whiting, whom has reviewed this chart and films and is in agreement with assessment and plan of care as outlined above. I have personally seen and examined the patient, performed the documentation and the assessment and plan as written. Number of minutes spent on the visit: 15m.
--- NOTE | 2023-05-09 08:47 | P.DS ---
Providers Date of admission: 05/07/23 Expected date of discharge: 05/09/23 Attending physician: Yaw Whiting DO Consults: 05/07/23 14:52 Consult Physician Routine Consulting Provider: Geoffrey Yousif Reason/Comments: medical management Do you want consulting provider notified?: Yes Primary care physician: Cornelius Lares Bradley Hospital Course: Hospital Course: The patient was evaluated preoperatively and found to have the diagnosis of lumbar spondylolisthesis. They underwent appropriate preoperative care and were willing to undergo the intended procedure. They underwent a successful L4-L5 minimally invasive TLIF, were recovered appropriately and sent to the floor. While on the floor they worked with physical therapy, occupational therapy and nursing to enhance their recovery experience. Their pain was well controlled through their stay and they were started on appropriate medications, DVT ppx modalities, activity and dietary needs. Daily labs were monitored closely, and transfusions were only used when necessary. Medicine as well as other consulting services have made their input and have helped with our team approach and multidisciplinary care. PT milestones have been met and passed and they have made the recommendation of home with home care for this patient and treating providers agree with this care path. The patient will be discharged home with appropriate medications, instructions and follow-up information and in stable condition. Patient Condition at Discharge: Good Plan - Discharge Summary Discharge Rx Participant: No New Discharge Prescriptions: New cefaDROXiL [Duricef] 500 mg PO Q12HR #10 cap Sennosides/Docusate Sodium [Senna Plus 8.6-50 mg Tablet] 1 each PO DAILY PRN #20 tablet PRN Reason: Constipation Cyclobenzaprine [Flexeril] 5 mg PO TID PRN #40 tablet PRN Reason: Muscle Spasm HYDROcodone/APAP 7.5-325MG [Mcfarlan 7.5] 1 each PO Q4-6H PRN #42 tab PRN Reason: Pain No Action Pantoprazole [Protonix] 40 mg PO AC-SUPPER Ergocalciferol [Vitamin D2 (1250 Mcg = 58022 Iu)] 1,250 mcg PO TH Gabapentin [Neurontin] 300 mg PO TID INSULIN LISPRO (For Pump) [humaLOG (For Pump)] 0.01 units SQ-PUMP CONTINUOUS Vit B12(Unk) 1 tab PO DAILY atenoloL [Tenormin] 20 mg PO DAILY traMADol HCL 50 mg PO Q6H Atorvastatin [Lipitor] 10 mg PO HS Discharge Medication List Ergocalciferol [Vitamin D2 (1250 Mcg = 12715 Iu)] 1,250 mcg PO TH 06/22/22 [History] Pantoprazole [Protonix] 40 mg PO AC-SUPPER 06/22/22 [History] atenoloL [Tenormin] 20 mg PO DAILY 06/22/22 [History] Gabapentin [Neurontin] 300 mg PO TID 10/03/22 [History] INSULIN LISPRO (For Pump) [humaLOG (For Pump)] 0.01 units SQ-PUMP CONTINUOUS 10/03/22 [History] traMADol HCL 50 mg PO Q6H 02/04/23 [History] Atorvastatin [Lipitor] 10 mg PO HS 05/01/23 [History] Vit B12(Unk) 1 tab PO DAILY 05/01/23 [History] Cyclobenzaprine [Flexeril] 5 mg PO TID PRN #40 tablet 05/09/23 [Rx] HYDROcodone/APAP 7.5-325MG [Mcfarlan 7.5] 1 each PO Q4-6H PRN #42 tab 05/09/23 [Rx] Sennosides/Docusate Sodium [Senna Plus 8.6-50 mg Tablet] 1 each PO DAILY PRN #20 tablet 05/09/23 [Rx] cefaDROXiL [Duricef] 500 mg PO Q12HR #10 cap 05/09/23 [Rx] Follow up Appointment(s)/Referral(s): Cornelius Hodgson [Primary Care Provider] - 1 Week Yaw Whiting DO [Doctor of Osteopathic Medicine] - 10 Days Activity/Diet/Wound Care/Special Instructions: Spine Discharge and Recovery Instructions Date of Surgery: 05/07/2023 Diagnosis: Lumbar spondylolisthesis Procedure: L4-L5 minimally invasive TLIF Medications: See medication list All medication refills should be obtained through your primary care doctor or your clinic spine surgeon. Please discuss prescription refills at your follow up appointment. Do not call the hospital for medication refills. Dressing: Leave your dressing in place for a total of 5 days post operatively. Then you may remove your dressing and leave open to air. Keep the area clean and if not able to keep area clean, then cover with sterile gauze and tape. Showering: You may shower 3 days after your procedure allowing soap and water to run over incision. Do not scrub. Do not soak. Blot dry. Follow up: Please confirm a follow up appointment with your surgeon 3 weeks post operatively. Please make an appointment to follow up with your PCP in 1-2 weeks after surgery for evaluation 3 phase, 3-week plan POST OP WEEKS 1-3 1. Lifting/carrying/pushing/pulling limited to less than 5 pounds. 2. Do not sit for longer than 15 minutes at one time. Get up and walk around. Prolonged sitting is NOT advised. If you lay down, see if you can tolerate laying down on you front (belly side) 3. Walk for periods of 15 minutes = 1 mile but no longer; do it multiple times times each day. 4. Ice your low back after activity. POST OP WEEKS 3-6 1. Lifting limited to less than 20 pounds. 2. Do not sit for longer than 30 minutes at a time. Frequently change positions. Use a sit-to stand workstation or take frequent breaks from sitting if you have returned to work. 3. Walk for 30 minutes each day. If possible, do these three or more times a day POST OP WEEKS 6+ At your 6-week appointment we will give you a physical therapy referral to focus on a core stabilization and strengthening program. You should also work on leg & buttock strengthening, hamstring & quadriceps stretching, and continue a low impact aerobic activity program such as swimming, walking, or riding a stationary bicycle. During the initial 6 weeks after your surgery, you are at the highest risk of re-injuring your spine. You should generally avoid BLTs (bending, lifting and twisting combination motions) and follow the above guidelines to reduce the chance of reinjury. You can anticipate post op appointments in our office at approximately 3 weeks and 6 weeks after your surgery. INCISION CARE: If your incision is not draining you do NOT need to cover it with a dressing. Keep your incision clean, dry and intact. In most cases, we apply skin glue, pedro or sutures to the incision at the time of surgery. This will be like a crust or have the appearance of a scab and will fall off in time on its own. The stitches or pedro need to be removed at 3 weeks post op appointment. You may begin to shower 3 days after surgery (this allows the glue to schaffer well). However, please avoid scrubbing the incision site or peeling off any of the skin glue. This will ensure optimal healing of your incision. Also, during this time avoid soaking the incision area in water - this includes swimming pools, hot tubs or baths. No ointments, lotions or oils on the incision until your surgeon allows. Leave pedro, sutures or glue in place. Neurological dysfunction that comes on suddenly can also be a sign of a stroke. Below some common symptoms of a stroke are listed: B - balance difficulty such as sudden onset walking or leaning to one side - NEW E - eye problem such as sudden double vision or trouble seeing on one side - NEW F - Facial weakness or numbness on one side - NEW A - Arm or leg weakness or numbness on one side - NEW S - Slurred speech or difficulty with word finding - NEW T - Time is BRAIN! Call 911 as soon as you recognize these symptoms Diet: Consume a regular diet rich in vegetables and lean protein such as chicken or fish. You should consume in a ratio of approximately 20% fats|40% carbohydrates|40%protein. Vegetables, sweet potatoes, brown rice or quinoa are examples of good carbohydrates. Chips, white bread, cookies and sweets/sugar are examples of bad carbohydrates. Limit your bad carbs, go wild with good carbs. "Life's Simple 7" Guidelines as per [place] [employer] These will help you reclaim your life after surgery and garage helper in your recovery, keeping in mind your restrictions. (1) Get Active. Physical activity can help people lose weight, control high blood pressure and cholesterol, feel emotionally better, and sleep better. (2) Control Cholesterol. Avoid a diet high in saturated fat, trans fat, & cholesterol. Limit whole milk & cream, ice cream, butter, egg yolks, processed meats (like sausage and hot dogs), and fatty meats. Choose healthy foods that are low in saturated fat, trans fat and cholesterol which include: Fruits and vegetables, fiber rich grain products (like whole grain pasta and brown rice), lean meat such as chicken, fish, nuts, seeds, and legumes. (3) Eat Better. Eat small portions. Shop at the grocery with a list and do not stray from it. Tips for a healthy diet include: Limit sodium intake to less than 1500mg daily, avoid prepackaged, processed, and fast foods, choose a diet rich in fruits, vegetables, and whole grain, high fiber foods, and limit saturated & cholesterol in your diet. (4) Manage Blood Pressure. If you have high blood pressure, you should have a cuff at home so that you can check your blood pressure regularly. Be sure you have a good cuff. An arm one is generally better than a wrist one. Bring the cuff to a doctor's appointment to validate that the measurements that your cuff are taking are accurate. Take your blood pressure twice daily when you are sitting down and relaxing. Record the numbers in a log and bring this log with you to your doctors' appointments. (5) Lose Weight if your BMI is above 25. A healthy BMI is between 19-25. To calculate Your BMI, you may use a Standard BMI Calculator on the NIH BMI website: <www.nhlbi.nih.gov/guidelines/obesity/BMI/bmicalc.htm>. Weigh oneself daily. If you are overweight, set a goal to lose weight. A pound a week loss if needed is a good target. (6) Reduce Blood Sugar. Limit foods and liquids with "added sugars." (Added sugars include sucrose, fructose, glucose, maltose, dextrose, high fructose corn syrup, corn syrup, concentrated fruit juice and honey). (7) Stop Smoking. If you smoke, quitting smoking is one of the best things that you can do for your health. Smoking increases your risk of heart attack, stroke, and peripheral vascular disease, which is a build-up of plaque in your arteries. Please discard all the cigarettes and lighters in your house. Have a plan for what you will do when you have the urge to smoke. Direct and second- hand smoke shortens your life as well as the lives of your family, friends and others around you. For your health and the health of those around you, please consider quitting! Proper Bending Body Mechanics: Maintain a wide stance with one foot slightly in front of the other. Keep your back straight. Bend utilizing the strength in your hips and knees. Do not bend at the waist. Maintain the lifted object at your waist-level close to your body. Avoid lifting weight that causes immediately pain or pain anywhere in the body afterwards. Smoking/Nicotine If there was ever one thing that you could do to increase your overall health, decrease your risk of cardiovascular problems by about 39% the second you make the choice, it is to STOP SMOKING. Your body's most instant gratification is the second you stop smoking. We have all heard the studies, read the articles but it is true, smoking is extremely bad for your overall health, and moreover it is detrimental to your bone health. Nicotine, IN ANY FORM, kills bone cells, prevents your body from healing fractures, and significantly prolongs healing after surgery. In spine surgery specifically, it increases your risk of not healing your bones to create a fusion and increases your risk of having a revision surgery due to this up to 60%. I know it is hard. I know it feels impossible. But there are ways. Take control of your life. We are here to help you through it. And when you are ready, ask us and we can direct you to help if you desire. Use the START Plan to Quit Smoking (please visit the HelpQualiLife.org website listed below for more information): S = Set a quit date. Choose a date within the next 2 weeks, so you have enough time to prepare without losing your motivation to quit. If you mainly smoke at work, quit on the weekend, so you have a few days to adjust to the change. T = Tell family, friends, and co-workers that you plan to quit. Let your friends and family in on your plan to quit smoking and tell them you need their support and encouragement to stop. Look for a quit angelina who wants to stop smoking as well. You can help each other get through the rough times. A = Anticipate and plan for the challenges you'll face while quitting. Most people who begin smoking again do so within the first 3 months. You can help yourself make it through by preparing ahead for common challenges, such as nicotine withdrawal and cigarette cravings. R = Remove cigarettes and other tobacco products from your home, car, and work. Throw away all your cigarettes (no emergency pack!), lighters, ashtrays, and matches. Wash your clothes and freshen up anything that smells like smoke. Shampoo your car, clean your drapes and carpet, and steam your furniture. T = Talk to your doctor about getting help to quit. Your doctor can prescribe medication to help with withdrawal and suggest other alternatives. If you can't see a doctor, you can get many products over the counter at your local pharmacy or grocery store, including the nicotine patch, nicotine lozenges, and nicotine gum. Resources for Quitting Smoking: <https://www.[place].gov/documents/[facility]/Quit_Tobacco_Resources_for_patients_313 480_7.pdf> Supplementation: Take recommended dosages of Vitamin D and Calcium to help fortify your bones and help them to heal. See your health maintenance packet for dosages and recommended levels. DVT/VTE prophylaxis: You will be given compression stockings from the hospital. Wear these daily for the first two weeks after surgery. You may take them off at night. You may be prescribed a medication to help thin your blood. Take this as directed. If you are not prescribed this medication, early and frequent ambulation has been shown to be the best prophylaxis to deep vein thrombosis and sequelae related to this event. Discharge Disposition: HOME WITH HOME HEALTH SERVICES
[2023-05-09] MEDS ORDERED: ERGOCALCIFEROL 1,250 MCG (50,000 IU) CAPSULE PO SCH (09:00)
[2023-05-09] MEDS ORDERED: atenoloL 25 MG TAB PO SCH (09:00)
[2023-05-09 11:39] LABS: Glucose,Whole Blood 298 mg/dL (70-110)
[2023-05-09 12:52] VITALS: BP 118/75; PULSE 80; RESP 17; TEMP 98.5
--- NOTE | 2023-05-09 13:35 | P.PN ---
Subjective Progress Note Date: 05/09/23 * 53-year-old gentleman with past medical significant for back pain, insulin- dependent diabetes mellitus presented to the hospital for elective lumbar L4-5 MIS Transforaminal Lumbar Interbody Fusion. Patient was following up outpatient with orthopedic spine for back pain. Patient has been noticing increasing pain in the lower back radiating down to lower extremities. Patient tried conservative measures but it failed. Patient discussed with orthopedic surgery and it was decided that patient be scheduled for L4-5 MIS Transforaminal Lumbar Interbody Fusion on 05/07/23. * Postoperatively medicine team was consulted for medical management * 05/09/23: Patient seen and evaluated bedside. Patient seen and stable for discharge orthopedic team primary completing Medrek. Pain is well-controlled Objective - Vital Signs Vital signs: Vital Signs Temp 98.5 F 05/09/23 12:34 Pulse 80 05/09/23 12:34 Resp 17 05/09/23 12:34 BP 118/75 05/09/23 12:34 Pulse Ox 98 05/09/23 12:34 FiO2 Intake & Output 05/08/23 05/09/23 05/09/23 18:59 06:59 18:59 Other: Voiding Method Toilet Toilet Urinal # Voids 3 2 1 - Exam PHYSICAL EXAMINATION: GENERAL: The patient is alert and oriented x3, not in any acute distress. Well developed, well nourished. HEENT: Pupils are round and equally reacting to light. EOMI. No scleral icterus. No conjunctival pallor. Normocephalic, atraumatic. No pharyngeal erythema. No thyromegaly. CARDIOVASCULAR: S1 and S2 present. No murmurs, rubs, or gallops. PULMONARY: Chest is clear to auscultation, no wheezing or crackles. ABDOMEN: Soft, nontender, nondistended, normoactive bowel sounds. No palpable organomegaly. MUSCULOSKELETAL: No joint swelling or deformity. EXTREMITIES: No cyanosis, clubbing, or pedal edema. NEUROLOGICAL: Gross neurological examination did not reveal any focal deficits. SKIN: No rashes. Lumbar regular surgical incision seen - Labs Labs: Abnormal Lab Results - Last 24 Hours (Table) 05/08/23 05/08/23 05/09/23 Range/Units 16:40 21:04 06:11 POC Glucose (mg/dL) 132 H 325 H 243 H (70-110) mg/dL Hemoglobin A1c (<=6.0) % 05/09/23 05/09/23 Range/Units 07:05 11:38 POC Glucose (mg/dL) 298 H (70-110) mg/dL Hemoglobin A1c 6.4 H (<=6.0) % Assessment and Plan Assessment: * L4-5 SPONDYLOLISTHESIS WITH SPONDYLOLYSIS GRADE I STATUS post L4-5 POSTERIOLATERAL AND INTERBODY FUSION, L4-5 INSTRUMENTATION, L4-5 LAMINOFORAMINOTOMY FOR DECOMPRESSION AND CAGE PLACEMENT * LE RADICULOPATHY WITH WEAKNESS * Insulin-dependent diabetes mellitus * Patient seen postoperatively, remained stable no focal deficit, * Patient to be discharged home with outpatient follow-up * Home medication regimen remains unchanged on follow-up with PCP
== END 2023-05-09 13:14 | disposition home health service (06) ==
LOC: OR 09:56 → 4SSUR 14:32 → OR 05-09 13:14
PROVIDERS: ATTEND Orthopaedic Surgery
DX: M43.16 Spondylolisthesis, lumbar region (principal); M51.16 Intervertebral disc disorders with radiculopathy, lumbar region; K21.9 Gastro-esophageal reflux disease without esophagitis; I10 Essential (primary) hypertension; E78.5 Hyperlipidemia, unspecified; Z79.4 Long term (current) use of insulin; Z90.49 Acquired absence of other specified parts of digestive tract; Z98.890 Other specified postprocedural states; Z80.0 Family history of malignant neoplasm of digestive organs; Z82.49 Family history of ischemic heart disease and other diseases of the circulatory system; Z83.3 Family history of diabetes mellitus; Z88.2 Allergy status to sulfonamides; Z88.1 Allergy status to other antibiotic agents; Z79.899 Other long term (current) drug therapy
CPT/HCPCS: 97116; 97162; 83036; 72100; 72131; 22853; 22840; 20930; 20937; 22633; 61783; C1713; C1734; J2175; J0690 ×3; J2405; J1170